=== PATIENT | female | born 1970 | race Caucasian/White ===

== ENCOUNTER 2018-02-06 06:03 | Observation (INO) | payer MEDICARE, MEDICAID ==
[~2018-02-06] VITALS: Ht 175.3 cm; Wt 78.0 kg
[~2018-02-06 06:03] MED LIST: ALPR-149 PO; ASPI-1071 PO; ATOR20TA PO; BIOT5000 PO; CHOL10002 PO; CLOP75TA15 PO; CYCL5TAB PO; FERR240T5 PO; FURO40TA4 PO; GLIP10TA11 PO; HYDR-3972 PO; IPRA3AMP IH; LISI-600 PO; MAGN400T6 PO; METO50TA7 PO; NITR0.4T SL; RISP0.253 PO; UBID100C16 PO; [UNRECOGNIZED DRUG - CODE] PO
[2018-02-06 06:33] LABS: BASOPHILS % (AUTO) 0.3 % (0-1); EOSINOPHILS # (AUTO) 0.1 X10'3 (0-0.9); EOSINOPHILS % (AUTO) 1.7 % (0-6); HEMATOCRIT 28.7 % (35.0-45.0); HEMOGLOBIN 9.6 g/dl (12.0-16.0); LYMPHOCYTES # (AUTO) 1.7 X10'3 (1.1-4.8); LYMPHOCYTES % (AUTO) 27.8 % (21-51); MEAN CORPUSCULAR HEMOGLOBIN 23.3 PG (27.0-31.0); MEAN CORPUSCULAR HGB CONC 33.4 % (33.0-36.5); MEAN CORPUSCULAR VOLUME 69.6 FL (78-98); MEAN PLATELET VOLUME 7.8 FL (7.4-10.4); MONOCYTES # (AUTO) 0.4 X10'3 (0-0.9); MONOCYTES % (AUTO) 6.9 % (2-12); NEUTROPHILS # (AUTO) 3.9 X10'3 (1.8-7.7); NEUTROPHILS % (AUTO) 63.3 % (42-75); PLATELET COUNT 294 X10'3 (140-440); RED BLOOD COUNT 4.12 X10'6 (4.20-5.60); RED CELL DISTRIBUTION WIDTH 19.1 % (11.5-14.5); WHITE BLOOD COUNT 6.2 X10'3 (4.5-11.0)
[2018-02-06 06:48] LABS: PARTIAL THROMBOPLASTIN TIME 22 SECONDS (22-32); PROTHROMBIN TIME 10.2 SECONDS (9.0-12.0)
[2018-02-06 06:53] LABS: ALANINE AMINOTRANSFERASE 25 U/L (12-78); ALBUMIN 3.3 G/DL (3.4-5.0); ALKALINE PHOSPHATASE 57 IU/L (46-116); ANION GAP 9 (8-16); ASPARTATE AMINO TRANSFERASE 18 U/L (10-37); BILIRUBIN,TOTAL 0.2 MG/DL (0.1-1.0); BLOOD UREA NITROGEN 18 MG/DL (7-18); BUN/CREATININE RATIO 14.9 (6.6-38.0); CALCIUM 8.7 MG/DL (8.5-10.1); CHLORIDE 104 MMOL/L (99-107); CREATININE 1.21 MG/DL (0.40-0.90); GLUCOSE 193 MG/DL (70-104); SODIUM 137 MMOL/L (135-145); TOTAL CARBON DIOXIDE 24.2 MMOL/L (24-32); TOTAL PROTEIN 6.7 G/DL (6.4-8.2); eGFR 47 ML/MIN
[2018-02-06] MEDS ORDERED: DULO20CA50 PO (07:02)
[2018-02-06] MEDS ORDERED: POTA8TAB8 PO (07:02)
[2018-02-06] MEDS ORDERED: FERR325T39 PO (07:02)
[2018-02-06] MEDS ORDERED: LISI40TA4 PO (07:02)
[2018-02-06] MEDS ORDERED: PRAV80TA3 PO (07:02)
[2018-02-06] MEDS ORDERED: nitroGLYCERIN 0.4mg/hour patch TD ONE (07:45)
[2018-02-06] MEDS ORDERED: carVEDilol 3.125mg tablet PO ONE (07:45)
[2018-02-06 08:01] LABS: MAGNESIUM 1.6 MG/DL (1.5-2.4)
[2018-02-06] MEDS ORDERED: hydrALAZINE 20mg/ml inj. IV ONE (10:20)
[2018-02-06] MEDS ORDERED: hydrALAZINE 20mg/ml inj. IV PRN (13:45)
[2018-02-06] MEDS ORDERED: magnesium hydroxide 30ml (MOM) UD suspension PO PRN (13:45)
[2018-02-06] MEDS ORDERED: mag hydrox/Alum hydrox/simeth 30ml oral suspension PO PRN (13:45)
[2018-02-06] MEDS ORDERED: acetaminophen 325mg tablet PO PRN (13:45)
[2018-02-06] MEDS ORDERED: ipratropium/albuterol 3ml nebule IH PRN (13:50)
[2018-02-06] MEDS: glipizide 5mg tablet PO SCH ×2 (14:10→19:47)
[2018-02-06 15:15] VITALS: BP 214/112
[2018-02-06] MEDS ORDERED: lisinopril 20mg tablet PO ONE (15:25)
[2018-02-06] MEDS: HYDROcodone/acetaminophen 10/325mg tab PO PRN (15:54)
[2018-02-06 16:25] VITALS: BP 159/87
[2018-02-06 18:10] VITALS: BP 130/74
[2018-02-06] MEDS: ondansetron/PF 4mg/2ml inj IV PRN (18:41)
[2018-02-06 18:44] VITALS: BP 118/53
[2018-02-06] MEDS: potassium chloride 8mEq ER tablet PO SCH (19:47)
[2018-02-06] MEDS: risperiDONE 0.25mg tablet PO SCH (19:49)
[2018-02-06] MEDS: heparin, porcine 5000 units/ml vial SQ SCH (19:49)
[2018-02-06] MEDS: carvedilol 6.25mg tablet PO SCH (19:52)
[2018-02-06] MEDS: lisinopril 10 MG tablet PO SCH (19:53)
[2018-02-06 19:55] VITALS: BP 94/45
[2018-02-06] MEDS ORDERED: MESSAGE TO PHARMACY PO ONE (21:20)
[2018-02-06] MEDS ORDERED: dextrose 50%-water 50ml dispensing syringe IV PRN ×2 (21:20)
[2018-02-06] MEDS ORDERED: glucagon, human recombinant 1mg kit SUBCUT PRN (21:20)
[2018-02-06] MEDS ORDERED: dextrose ORAL solution 15 GM/59 ML bottle PO PRN ×2 (21:20)
[2018-02-06 21:55] LABS: HEMOGLOBIN A1C 8.3 % (4.5-6.2)
[2018-02-06 22:00] VITALS: BP 98/56
[2018-02-06] MEDS ORDERED: insulin glargine (Lantus) pen - multi-dose SQ SCH (22:00)
[2018-02-07 02:00] VITALS: BP 105/51
[2018-02-07] MEDS: nitroGLYCERIN 0.4mg SUBLingual tab SL PRN ×4 (02:24→10:30)
[2018-02-07 02:25] VITALS: BP 111/63
[2018-02-07] MEDS: HYDROcodone/acetaminophen 10/325mg tab PO PRN (02:25)
[2018-02-07 05:55] LABS: BASOPHILS % (AUTO) 0.3 % (0-1); EOSINOPHILS # (AUTO) 0.1 X10'3 (0-0.9); HEMATOCRIT 27.5 % (35.0-45.0); HEMOGLOBIN 9.1 g/dl (12.0-16.0); LYMPHOCYTES # (AUTO) 1.6 X10'3 (1.1-4.8); LYMPHOCYTES % (AUTO) 22.8 % (21-51); MEAN CORPUSCULAR HEMOGLOBIN 23.1 PG (27.0-31.0); MEAN CORPUSCULAR VOLUME 70.1 FL (78-98); MEAN PLATELET VOLUME 8.5 FL (7.4-10.4); MONOCYTES # (AUTO) 0.4 X10'3 (0-0.9); MONOCYTES % (AUTO) 6.3 % (2-12); NEUTROPHILS # (AUTO) 4.8 X10'3 (1.8-7.7); NEUTROPHILS % (AUTO) 69.6 % (42-75); PLATELET COUNT 255 X10'3 (140-440); RED BLOOD COUNT 3.93 X10'6 (4.20-5.60); RED CELL DISTRIBUTION WIDTH 19.6 % (11.5-14.5); WHITE BLOOD COUNT 6.9 X10'3 (4.5-11.0)
[2018-02-07 06:00] VITALS: BP 131/63
[2018-02-07 06:10] LABS: ALBUMIN 3.2 G/DL (3.4-5.0); ANION GAP 9 (8-16); BLOOD UREA NITROGEN 21 MG/DL (7-18); BUN/CREATININE RATIO 18.6 (6.6-38.0); CALCIUM 8.8 MG/DL (8.5-10.1); CHLORIDE 104 MMOL/L (99-107); CREATININE 1.13 MG/DL (0.40-0.90); GLUCOSE 97 MG/DL (70-104); SODIUM 138 MMOL/L (135-145); TOTAL CARBON DIOXIDE 24.8 MMOL/L (24-32); eGFR 51 ML/MIN
[2018-02-07] MEDS: lisinopril 10 MG tablet PO SCH (07:27)
[2018-02-07] MEDS: risperiDONE 0.25mg tablet PO SCH (07:27)
[2018-02-07] MEDS: carvedilol 6.25mg tablet PO SCH (07:28)
[2018-02-07] MEDS: potassium chloride 8mEq ER tablet PO SCH (07:29)
[2018-02-07] MEDS: heparin, porcine 5000 units/ml vial SQ SCH (07:30)
[2018-02-07] MEDS ORDERED: atorvastatin 20mg tablet PO SCH (08:00)
[2018-02-07] MEDS ORDERED: ferrous sulfate 325mg tablet PO SCH (08:00)
[2018-02-07] MEDS ORDERED: duloxetine 20mg capsule.DR PO SCH (08:00)
[2018-02-07] MEDS ORDERED: clopidogrel 75mg tablet PO SCH (08:00)
[2018-02-07] MEDS ORDERED: furosemide 40mg tablet PO SCH (08:00)
[2018-02-07] MEDS ORDERED: aspirin 81mg tablet.DR PO SCH (08:00)
[2018-02-07] MEDS ORDERED: magnesium oxide 400mg tablet PO SCH (08:00)
[2018-02-07] MEDS: insulin Lispro (HumaLOG) vial - multi-dose SQ SCH ×2 (09:46→14:11)
[2018-02-07 09:50] VITALS: BP 127/77
[2018-02-07 10:00] VITALS: BP 130/56
[2018-02-07] MEDS: ondansetron/PF 4mg/2ml inj IV PRN (10:53)
[2018-02-07] MEDS ORDERED: CARV6.253 PO (12:44)
[2018-02-07] MEDS ORDERED: ISOS30TA6 PO (12:44)
[2018-02-07] MEDS ORDERED: ONDA4TAB12 PO (12:51)
== END 2018-02-07 17:40 | disposition home or self-care (01) ==
LOC: ER 06:03 → ED HOLD 13:41 → ORTHO 4S 15:40
PROVIDERS: ADMIT Family Medicine; ATTEND Family Medicine
DX: R07.89 Other chest pain (principal); E78.5 Hyperlipidemia, unspecified; E11.9 Type 2 diabetes mellitus without complications; I21.4 Non-ST elevation (NSTEMI) myocardial infarction; I11.0 Hypertensive heart disease with heart failure; I50.43 Acute on chronic combined systolic (congestive) and diastolic (congestive) heart failure; I25.110 Atherosclerotic heart disease of native coronary artery with unstable angina pectoris; Z79.82 Long term (current) use of aspirin; Z79.84 Long term (current) use of oral hypoglycemic drugs; Z79.899 Other long term (current) drug therapy; Z82.49 Family history of ischemic heart disease and other diseases of the circulatory system; Z87.891 Personal history of nicotine dependence; Z91.19 Patient's noncompliance with other medical treatment and regimen
CPT/HCPCS: 36415; 71045; 80048; 80053; 82948; 83036; 83735; 83880; 84484; 85025; 85610; 85730; 87070; 93005; 94760; 96372; 96374; 96375; 96376; 99285; G0378; J0360; J1644; J1815; J2405

== ENCOUNTER 2019-06-03 20:32 | Inpatient (IN) | payer MEDICARE, MEDICAID ==
[~2019-06-03] VITALS: Ht 175.3 cm; Wt 81.8 kg
[2019-06-03] MEDS: normal saline 1000ml 1,000 ML IV SCH (00:40)
[~2019-06-03 20:32] MED LIST changes: -ALPR-149 PO; -ATOR20TA PO; -BIOT5000 PO; +CARV6.253 PO; -CHOL10002 PO; -CYCL5TAB PO; +DULO20CA50 PO; -FERR240T5 PO; +FERR325T39 PO; -IPRA3AMP IH; +IPRA3AMP31 IH; -LISI-600 PO; +LISI40TA4 PO; -METO50TA7 PO; +ONDA4TAB12 PO; +POTA8TAB8 PO; +PRAV80TA3 PO; -UBID100C16 PO; -[UNRECOGNIZED DRUG - CODE] PO
[2019-06-03 21:00] LABS: BASOPHILS % (AUTO) 0.4 % (0-1); EOSINOPHILS % (AUTO) 0.2 % (0-6); HEMOGLOBIN 13.3 g/dl (12.0-16.0); LYMPHOCYTES # (AUTO) 1.4 X10'3 (1.1-4.8); LYMPHOCYTES % (AUTO) 12.6 % (21-51); MEAN CORPUSCULAR HEMOGLOBIN 24.1 PG (27.0-31.0); MEAN CORPUSCULAR HGB CONC 33.2 g/dL (33.0-36.5); MEAN CORPUSCULAR VOLUME 72.7 FL (78-98); MONOCYTES # (AUTO) 0.5 X10'3 (0-0.9); MONOCYTES % (AUTO) 4.5 % (2-12); NEUTROPHILS # (AUTO) 9.4 X10'3 (1.8-7.7); NEUTROPHILS % (AUTO) 82.3 % (42-75); PLATELET COUNT 325 X10'3 (140-440); RED CELL DISTRIBUTION WIDTH 15.3 % (11.5-14.5); WHITE BLOOD COUNT 11.4 X10'3 (4.5-11.0)
--- NOTE | 2019-06-03 21:07 | NUR ---
SPOKE TO MD RE: PTS COMPLAINT AND HR - AWAITING MD ORDERS
[2019-06-03] MEDS ORDERED: metoclopramide 5 mg/ml inj IV ONE (21:10)
[2019-06-03] MEDS ORDERED: morphine 4 MG/ML inj SYRINge IV ONE (21:10)
[2019-06-03] MEDS ORDERED: ondansetron/PF 4mg/2ml inj IV ONE (21:10)
[2019-06-03] MEDS ORDERED: normal saline 1000ml 1,000 ML IV ONE (21:10)
[2019-06-03 21:13] LABS: ALANINE AMINOTRANSFERASE 25 U/L (12-78); ALBUMIN 3.6 G/DL (3.4-5.0); ALBUMIN/GLOBULIN RATIO 0.9 (1.1-1.5); ALKALINE PHOSPHATASE 75 IU/L (46-116); ANION GAP 10 (8-16); ASPARTATE AMINO TRANSFERASE 13 U/L (10-37); BILIRUBIN,TOTAL 0.3 MG/DL (0.1-1.0); BLOOD UREA NITROGEN 18 MG/DL (7-18); BUN/CREATININE RATIO 13.4 (6.6-38.0); CALCIUM 8.9 MG/DL (8.5-10.1); CHLORIDE 98 MMOL/L (99-107); CREATININE 1.34 MG/DL (0.40-0.90); GLUCOSE 309 MG/DL (70-104); POTASSIUM 3.6 MMOL/L (3.5-5.1); SODIUM 132 MMOL/L (135-145); TOTAL CARBON DIOXIDE 24.3 MMOL/L (24-32); TOTAL PROTEIN 7.5 G/DL (6.4-8.2); eGFR 42 ML/MIN
[2019-06-03 21:14] LABS: PARTIAL THROMBOPLASTIN TIME 26 SECONDS (22-32)
[2019-06-03] MEDS ORDERED: aspirin 81mg tab.chew PO ONE (21:20)
[2019-06-03] MEDS ORDERED: heparin 10,000 units/1 ML INJ IV ONE (21:20)
[2019-06-03] MEDS ORDERED: diltiazem 5mg/ml 5ml inj. IV ONE ×2 (21:25→21:45)
[2019-06-03] MEDS: heparin 25,000 UNIT/250ml bag 250 ML IV SCH (21:43)
[2019-06-03] MEDS ORDERED: diltiazem-D5W 125mg/125ml 125 ML IV SCH ×2 (21:50→22:00)
[2019-06-03] MEDS ORDERED: diltiazem-NS 100mg/100ml 100 ML IV SCH ×2 (21:52→22:08)
--- NOTE | 2019-06-03 21:54 | NUR ---
PT RESPONDED THE 2ND DOSE OF CARDIZEM - MD AWARE - REPEAT EKG ORDERED.
[2019-06-03] MEDS ORDERED: magnesium 2GM in 50ml NS 50 ML IV ONE (21:55)
[2019-06-03] MEDS ORDERED: GLIP10TA11 PO (22:08)
[2019-06-03] MEDS ORDERED: MAGN500C16 PO (22:08)
[2019-06-03] MEDS ORDERED: FURO-149 PO (22:08)
[2019-06-03] MEDS ORDERED: HYDR-4353 PO (22:08)
[2019-06-03] MEDS ORDERED: CLOP75TA15 PO (22:08)
[2019-06-03] MEDS ORDERED: UBID100C45 PO (22:08)
[2019-06-03] MEDS ORDERED: CINN500C16 PO (22:08)
[2019-06-03] MEDS ORDERED: ISOS30TA6 PO (22:08)
--- NOTE | 2019-06-03 23:40 | NUR ---
HOSPITALIST AT BEDSIDE - BAUTISTA CONFIMRED TO START THE CARDIZEM DRIP AT 5MG/HR
[2019-06-03] MEDS ORDERED: ipratropium/albuterol 3ml nebule IH PRN (23:55)
[2019-06-03] MEDS ORDERED: mag hydrox/Alum hydrox/simeth 30ml oral suspension PO PRN (23:55)
[2019-06-03] MEDS ORDERED: acetaminophen 325mg tablet PO PRN (23:55)
[2019-06-03] MEDS ORDERED: ondansetron/PF 4mg/2ml inj IV PRN (23:55)
[2019-06-03] MEDS ORDERED: magnesium hydroxide 30ml (MOM) UD suspension PO PRN (23:55)
[2019-06-04] VITALS (8 sets, daily range): BP systolic 115–154; BP diastolic 54–82
[2019-06-04] MEDS ORDERED: dextrose 50%-water 50ml dispensing syringe IV PRN ×2
[2019-06-04] MEDS ORDERED: dextrose ORAL solution 15 GM/59 ML bottle PO PRN ×2
[2019-06-04] MEDS ORDERED: MESSAGE TO PHARMACY PO ONE
[2019-06-04] MEDS ORDERED: glucagon, human recombinant 1mg kit SUBCUT PRN
--- NOTE | 2019-06-04 00:09 | NUR ---
Patient in room PCU 3012. I have received report from Ankit KUMARI and had the opportunity to ask questions and assume patient care.
[2019-06-04 00:29] LABS: HEMOGLOBIN A1C 9.4 % (4.5-6.2)
--- NOTE | 2019-06-04 00:35 | NUR ---
Patient arrived to room 3012B from the ED via gurney, all belongings on person. Patient was able to ambulate to bed with minimal assistance. Oriented to room, call light, plan of care, and all questions answered. Mobile hooked up and vital signs stable. Heparin gtt running @ 1000units/hr and Cardizem gtt running at 5mls/hr. 2 RN skin check done, no findings. Chest pain "going away". Will continue to monitor.
[2019-06-04] MEDS: normal saline 1000ml 1,000 ML IV SCH (00:40)
[2019-06-04 03:06] LABS: BASOPHILS # (AUTO) 0.1 X10'3 (0-0.2); BASOPHILS % (AUTO) 0.7 % (0-1); EOSINOPHILS % (AUTO) 0.3 % (0-6); HEMATOCRIT 39.2 % (35.0-45.0); HEMOGLOBIN 12.8 g/dl (12.0-16.0); LYMPHOCYTES % (AUTO) 21.3 % (21-51); MEAN CORPUSCULAR HEMOGLOBIN 24.2 PG (27.0-31.0); MEAN CORPUSCULAR HGB CONC 32.6 g/dL (33.0-36.5); MEAN CORPUSCULAR VOLUME 74.3 FL (78-98); MONOCYTES # (AUTO) 0.5 X10'3 (0-0.9); MONOCYTES % (AUTO) 5.2 % (2-12); NEUTROPHILS # (AUTO) 6.8 X10'3 (1.8-7.7); NEUTROPHILS % (AUTO) 72.5 % (42-75); PLATELET COUNT 284 X10'3 (140-440); RED BLOOD COUNT 5.27 X10'6 (4.20-5.60); RED CELL DISTRIBUTION WIDTH 15.9 % (11.5-14.5); WHITE BLOOD COUNT 9.4 X10'3 (4.5-11.0)
[2019-06-04] MEDS: heparin 10,000 units/1 ML INJ IV PRN ×2 (05:06→12:25)
[2019-06-04] MEDS: heparin 25,000 UNIT/250ml bag 250 ML IV SCH ×4 (05:15→20:28)
[2019-06-04] MEDS: HYDROcodone/acetaminophen 5mg/325mg tablet PO PRN ×2 (05:20→23:59)
--- NOTE | 2019-06-04 06:20 | NUR ---
Patient in room PCU 3012. I have received report from Mery KUMARI and had the opportunity to ask questions and assume patient care. Pt is alert and oriented X 4 in no apparent distress, will continue to monitor.
--- NOTE | 2019-06-04 06:27 | NUR ---
Problems reprioritized. Patient report given, questions answered & plan of care reviewed with Malena KUMARI.
--- NOTE | 2019-06-04 07:17 | NUR ---
PAGER ID: [phone] MESSAGE: [id number] Mireya Juarez Pt admitted last night for A-Fib, pt in Sinus Rhythm, HR 70, BP 152/70, but pt still on Cardizem gtt at 5 mg/hr. Continue Cardizem gtt or give PO. Please adviseMalena # [phone] Addendum: 06/04/19 at 0729 by Malena Carreon RN Spoke to Dr. Sears. New order, decrease Cardizem gtt to 3 mg/hr, give Metoprolol 12.5 mg PO BID, first dose now, and discontinue Cardizem gtt, one hour aft Metoprolol given.
[2019-06-04] MEDS: metoprolol tartrate 12.5mg (1/2 tablet) PO SCH ×2 (07:52→20:33)
[2019-06-04] MEDS: aspirin 81mg tablet.DR PO SCH (07:53)
[2019-06-04] MEDS: lisinopril 20mg tablet PO SCH ×2 (07:53→20:33)
[2019-06-04] MEDS: magnesium oxide 400mg tablet PO SCH (07:53)
[2019-06-04] MEDS ORDERED: atorvastatin 20mg tablet PO SCH ×2 (08:00→21:00)
[2019-06-04] MEDS: clopidogrel 75mg tablet PO SCH (08:21)
[2019-06-04] MEDS: insulin Lispro (HumaLOG) vial - multi-dose SQ SCH ×3 (08:24→19:14)
[2019-06-04 08:50] LABS: CHOL/HDL RATIO 6.3 (0.00-4.99); CHOLESTEROL 327 MG/DL (0-200); HDL CHOLESTEROL 52 MG/DL (35-60); LDL CHOLESTEROL 214 MG/DL (50-100); TRIGLYCERIDES 345 MG/DL (20-135)
[2019-06-04] MEDS: duloxetine 20mg capsule.DR PO SCH ×2 (10:25→20:33)
--- NOTE | 2019-06-04 10:56 | NUR ---
Faxed over request for Echo and Stress Test from [facility] (Dr. Jay). Awaiting records.
[2019-06-04 13:42] LABS: URINE AMPHETAMINE SCREEN NEGATIVE (Neg); URINE BARBITUATE SCREEN NEGATIVE (Neg); URINE BENZODIAZEPINES SCREEN NEGATIVE (Neg); URINE CANNABINOID SCREEN POSITIVE (Neg); URINE COCAINE SCREEN NEGATIVE (Neg); URINE METHADONE SCREEN NEGATIVE (Neg); URINE OPIATE SCREEN POSITIVE (Neg); URINE PHENCYCLIDINE SCREEN NEGATIVE (Neg)
--- NOTE | 2019-06-04 15:44 | NUR ---
DM consult, A1c 9.4, given written DM education handout with verbal review and referral to outpatient DM education class on Saturday morning. Admitted with new onset Afib, CHF, FEMI, HTN, h/o COPD, pulmonary embolism. Noted that patient's LDL is 214 and TG is 345, recommended adding heart healthy diet, notified MD. Patient given written high triglyceride education handout with verbal review. Patient reports that she cut out soda, is using splenda, and decreased use of processed foods. Pt takes her DM medication as directed, only misses a dose every once in a while, encouraged pt to see her MD on a regular basis to have her A1c and meds evaluated. Discussed eating foods lower in saturated fats such as whole dairy and butter, patient reported that she uses a lot of coconut oil in her cooking, educated pt of the nutrition content of coconut oil and advised to use more MUFA/PUFA oils. Gave pt RD contact information for any further education. Recommend 1. continue carb controlled diet 2. consider adding heart healthy diet, notified MD 3. Wt per rx Addendum: 06/04/19 at [address] Amended: Links added.
[2019-06-04] MEDS ORDERED: nitroGLYCERIN 0.4mg SUBLingual tab SL PRN (17:25)
[2019-06-04] MEDS ORDERED: metoprolol tartrate 1mg/ml inj IV PRN (17:25)
[2019-06-04] MEDS ORDERED: regadenoson 0.4mg/5ml syringe IV ONE (17:25)
[2019-06-04] MEDS ORDERED: aminophylline 250mg/10ml inj. IV PRN (17:25)
--- NOTE | 2019-06-04 18:25 | NUR ---
Patient in room PCU 3012. I have received report from Malena KUMARI and had the opportunity to ask questions and assume patient care.
--- NOTE | 2019-06-04 18:32 | NUR ---
Problems reprioritized. Patient report given, questions answered & plan of care reviewed with Mery KUMARI.
[2019-06-04] MEDS: insulin glargine (Lantus) pen - multi-dose SQ SCH (21:30)
[2019-06-05] VITALS (17 sets, daily range): BP systolic 151–190; BP diastolic 55–91
[2019-06-05] MEDS: normal saline 1000ml 1,000 ML IV SCH (02:45)
[2019-06-05 02:55] LABS: BASOPHILS % (AUTO) 0.3 % (0-1); EOSINOPHILS # (AUTO) 0.1 X10'3 (0-0.9); HEMOGLOBIN 11.1 g/dl (12.0-16.0); LYMPHOCYTES # (AUTO) 2.4 X10'3 (1.1-4.8); LYMPHOCYTES % (AUTO) 31.2 % (21-51); MEAN CORPUSCULAR HGB CONC 32.5 g/dL (33.0-36.5); MEAN CORPUSCULAR VOLUME 73.8 FL (78-98); MEAN PLATELET VOLUME 8.1 FL (7.4-10.4); MONOCYTES # (AUTO) 0.4 X10'3 (0-0.9); MONOCYTES % (AUTO) 5.4 % (2-12); NEUTROPHILS # (AUTO) 4.8 X10'3 (1.8-7.7); NEUTROPHILS % (AUTO) 62.1 % (42-75); PLATELET COUNT 223 X10'3 (140-440); RED BLOOD COUNT 4.62 X10'6 (4.20-5.60); RED CELL DISTRIBUTION WIDTH 15.7 % (11.5-14.5); WHITE BLOOD COUNT 7.6 X10'3 (4.5-11.0)
[2019-06-05 03:11] LABS: ANION GAP 8 (8-16); BLOOD UREA NITROGEN 19 MG/DL (7-18); BUN/CREATININE RATIO 14.3 (6.6-38.0); CALCIUM 8.6 MG/DL (8.5-10.1); CHLORIDE 103 MMOL/L (99-107); CREATININE 1.33 MG/DL (0.40-0.90); GLUCOSE 154 MG/DL (70-104); POTASSIUM 3.6 MMOL/L (3.5-5.1); SODIUM 135 MMOL/L (135-145); TROPONIN I 0.34 NG/ML (0.0-0.05); eGFR 42 ML/MIN
--- NOTE | 2019-06-05 06:18 | NUR ---
Problems reprioritized. Patient report given, questions answered & plan of care reviewed with Malena KUMARI.
--- NOTE | 2019-06-05 06:22 | NUR ---
Patient in room PCU 3012. I have received report from Mery KUMRAI and had the opportunity to ask questions and assume patient care. Heparin gtt running at 1200 units/hour, pt alert and oriented X 4 in no apparent distress, will continue to monitor.
[2019-06-05] MEDS: magnesium oxide 400mg tablet PO SCH (07:38)
[2019-06-05] MEDS: metoprolol tartrate 12.5mg (1/2 tablet) PO SCH (07:39)
[2019-06-05] MEDS: duloxetine 20mg capsule.DR PO SCH ×2 (07:40→20:20)
[2019-06-05] MEDS: aspirin 81mg tablet.DR PO SCH (07:40)
[2019-06-05] MEDS: lisinopril 20mg tablet PO SCH ×2 (07:40→20:21)
[2019-06-05] MEDS: clopidogrel 75mg tablet PO SCH (07:40)
[2019-06-05] MEDS ORDERED: regadenoson 0.4mg/5ml syringe IV ONE (09:29)
[2019-06-05] MEDS ORDERED: aminophylline inj. 10 ML IV ONE (09:29)
[2019-06-05] MEDS: heparin 10,000 units/1 ML INJ IV PRN (11:26)
[2019-06-05] MEDS: heparin 25,000 UNIT/250ml bag 250 ML IV SCH ×3 (11:27→18:23)
--- NOTE | 2019-06-05 11:51 | NUR ---
PAGER ID: [phone] MESSAGE: [id number] Mireya Juarez Pt returned from [facility] Scan, pt BP is 190/91. Please call Malena #[phone]
[2019-06-05] MEDS: insulin Lispro (HumaLOG) vial - multi-dose SQ SCH ×2 (12:39→19:00)
--- NOTE | 2019-06-05 13:45 | NUR ---
Federico painter's her Primary MD is Paul. Addendum: 06/05/19 at 1346 by Fany JONES Amended: Links added.
--- NOTE | 2019-06-05 15:02 | NUR ---
PAGER ID: [phone] MESSAGE: [id number] Mireya Juarez stress test has resulted. Thank you, Malena #[phone] Addendum: 06/05/19 at 1515 by Malena Carreon RN Dr. Veras called back and stated that she spoke to Dr. Garcia. Dr. Garcia will review results of pt's stress test and come by sometime to speak with the pt to discuss a plan.
[2019-06-05] MEDS: nitroGLYCERIN 0.4mg SUBLingual tab SL PRN ×2 (17:14→17:22)
--- NOTE | 2019-06-05 17:14 | NUR ---
Pt complained of chest pain. Placed order per protocol and per Dr. Garcia for STAT ECG. Dr. Gasca read ECG strip and signed it. Per Dr. Garcia, no STEMI ALERT at this time.
[2019-06-05] MEDS ORDERED: metoprolol tartrate 50mg tablet PO ONE (17:25)
[2019-06-05] MEDS ORDERED: metoprolol tartrate 25mg tablet PO ONE (17:50)
--- NOTE | 2019-06-05 18:03 | NUR ---
PAGER ID: [phone] MESSAGE: [id number] [place]. Mireya Pt complained of chest pain while Dr. Garcia rounded, ran a STAT ECG and Radha signed and stated that there is no ST elevation, he adjusted her medications. Thank you, Malena #[phone]
--- NOTE | 2019-06-05 18:25 | NUR ---
Problems reprioritized. Patient report given, questions answered & plan of care reviewed with Dheeraj KUMARI.
[2019-06-05] MEDS ORDERED: isosorbide mononitrate 30mg tab.SR.24H PO SCH (18:30)
[2019-06-05] MEDS: HYDROcodone/acetaminophen 5mg/325mg tablet PO PRN (18:57)
[2019-06-05] MEDS: atorvastatin 20mg tablet PO SCH (20:21)
[2019-06-05] MEDS: isosorbide mononitrate 30mg tab.SR.24H PO SCH (20:22)
[2019-06-05] MEDS: insulin glargine (Lantus) pen - multi-dose SQ SCH (21:20)
[2019-06-06 03:00] VITALS: BP 156/77
--- NOTE | 2019-06-06 06:10 | NUR ---
Patient in room PCU 3012. I have received report from Dheeraj KUMARI and had the opportunity to ask questions and assume patient care. Pt is resting in no apparent distress with heparin gtt infusing at 1300 unit/hour. Will continue to monitor.
[2019-06-06 06:46] LABS: ALBUMIN 2.8 G/DL (3.4-5.0); ANION GAP 6 (8-16); BLOOD UREA NITROGEN 22 MG/DL (7-18); BUN/CREATININE RATIO 16.1 (6.6-38.0); CALCIUM 8.5 MG/DL (8.5-10.1); CHLORIDE 103 MMOL/L (99-107); CREATININE 1.37 MG/DL (0.40-0.90); GLUCOSE 166 MG/DL (70-104); POTASSIUM 4.1 MMOL/L (3.5-5.1); SODIUM 136 MMOL/L (135-145); eGFR 41 ML/MIN
[2019-06-06 07:00] VITALS: BP_SYST 146; BP_SYST 162; BP_DIAS 78; BP_DIAS 90
[2019-06-06 07:02] LABS: BASOPHILS % (AUTO) 0.4 % (0-1); EOSINOPHILS # (AUTO) 0.1 X10'3 (0-0.9); EOSINOPHILS % (AUTO) 1.2 % (0-6); HEMATOCRIT 33.3 % (35.0-45.0); LYMPHOCYTES # (AUTO) 2.2 X10'3 (1.1-4.8); LYMPHOCYTES % (AUTO) 33.8 % (21-51); MEAN CORPUSCULAR HEMOGLOBIN 24.4 PG (27.0-31.0); MEAN CORPUSCULAR HGB CONC 32.9 g/dL (33.0-36.5); MEAN CORPUSCULAR VOLUME 74.3 FL (78-98); MEAN PLATELET VOLUME 8.1 FL (7.4-10.4); MONOCYTES # (AUTO) 0.5 X10'3 (0-0.9); MONOCYTES % (AUTO) 7.2 % (2-12); NEUTROPHILS # (AUTO) 3.7 X10'3 (1.8-7.7); NEUTROPHILS % (AUTO) 57.4 % (42-75); PLATELET COUNT 252 X10'3 (140-440); RED BLOOD COUNT 4.49 X10'6 (4.20-5.60); RED CELL DISTRIBUTION WIDTH 15.6 % (11.5-14.5); WHITE BLOOD COUNT 6.5 X10'3 (4.5-11.0)
[2019-06-06] MEDS: duloxetine 20mg capsule.DR PO SCH ×2 (08:03→20:22)
[2019-06-06] MEDS: clopidogrel 75mg tablet PO SCH (08:03)
[2019-06-06] MEDS: aspirin 81mg tablet.DR PO SCH (08:03)
[2019-06-06] MEDS: insulin Lispro (HumaLOG) vial - multi-dose SQ SCH ×3 (08:59→19:11)
[2019-06-06] MEDS: lisinopril 20mg tablet PO SCH ×2 (09:33→20:23)
[2019-06-06] MEDS: metoprolol tartrate 50mg tablet PO SCH ×2 (09:33→20:22)
[2019-06-06 09:39] LABS: MAGNESIUM 1.8 MG/DL (1.5-2.4)
[2019-06-06] MEDS: magnesium oxide 400mg tablet PO SCH (09:46)
--- NOTE | 2019-06-06 10:02 | NUR ---
Pt stated that she will follow up with Dr. Jay as outpatient. I communicated this to Dr. Garcia. Pt also has denied chest pain. Per Dr. Garcia, discontinue Heparin gtt shortly after pt is evaluated by physical therapy. Pt is resting at this time in no apparent distress, will continue to monitor.
[2019-06-06 11:00] VITALS: BP 114/61
[2019-06-06 15:00] VITALS: BP 150/66
--- NOTE | 2019-06-06 15:47 | NUR ---
PAGER ID: [phone] MESSAGE: [id number] Pt's blood pressure is 186/81, heart rate 56. Please callMalena # [phone] Addendum: 06/06/19 at 1549 by Malena Carreon RN Dr. Veras called back. Per john Payne pt's blood pressure in one hour.
--- NOTE | 2019-06-06 18:29 | NUR ---
Problems reprioritized. Patient report given, questions answered & plan of care reviewed with Perri KUMARI.
[2019-06-06 19:00] VITALS: BP 189/89
[2019-06-06] MEDS: atorvastatin 20mg tablet PO SCH (20:23)
[2019-06-06] MEDS: isosorbide mononitrate 30mg tab.SR.24H PO SCH (20:23)
[2019-06-06] MEDS: apixaban 5mg tablet PO SCH (20:24)
--- NOTE | 2019-06-06 20:34 | NUR ---
PAGER ID: [phone] MESSAGE: Patient Mireya Juarez in room 3012B is experiencing pressure on chest with a manual BP of 210/102. No other symptoms reported. STAT EKG being obtained now. [facility] Perri [phone]
[2019-06-06] MEDS: nitroGLYCERIN 0.4mg SUBLingual tab SL PRN ×3 (20:42→20:53)
--- NOTE | 2019-06-06 20:45 | NUR ---
PAGER ID: [phone] MESSAGE: Patient Mireya Juarez has been given the first dose of Nitro for PRN chest pain. Reassessment of manual BP is 202/100. PCU Perri [phone]
[2019-06-06] MEDS ORDERED: nitroGLYCERIN 0.4mg/hour patch TD ONE (20:55)
[2019-06-06] MEDS: HYDROcodone/acetaminophen 5mg/325mg tablet PO PRN (21:27)
[2019-06-06] MEDS: insulin glargine (Lantus) pen - multi-dose SQ SCH (21:34)
[2019-06-06] MEDS: hydrALAZINE 20mg/ml inj. IV PRN (21:39)
--- NOTE | 2019-06-06 22:19 | NUR ---
PAGER ID: [phone] MESSAGE: Patient Mireya Juarez in room 3012B has been given the Hydralazine 10 MG and also the Nitro Patch. BP still is 191/81. Please be advised. [facility] Perri [phone]
--- NOTE | 2019-06-06 22:44 | NUR ---
PAGER ID: [phone] MESSAGE: FYI Patient Mireya Juarez in room 3012B had a manual BP taken which revealed a BP of 164/70 so advised ONE time dose of Vasotech no longer necessary. Will continue to closely monitor BP with manual cuff. U Perri [id number]
[2019-06-06 23:00] VITALS: BP 164/70
[2019-06-07 03:00] VITALS: BP 151/75
[2019-06-07 05:19] LABS: ANION GAP 8 (8-16); BLOOD UREA NITROGEN 26 MG/DL (7-18); BUN/CREATININE RATIO 22.8 (6.6-38.0); CALCIUM 8.9 MG/DL (8.5-10.1); CHLORIDE 103 MMOL/L (99-107); CREATININE 1.14 MG/DL (0.40-0.90); GLUCOSE 194 MG/DL (70-104); SODIUM 134 MMOL/L (135-145); TOTAL CARBON DIOXIDE 22.6 MMOL/L (24-32); eGFR 51 ML/MIN
[2019-06-07 05:22] LABS: BASOPHILS % (AUTO) 0.2 % (0-1); EOSINOPHILS % (AUTO) 0.6 % (0-6); HEMATOCRIT 33.8 % (35.0-45.0); LYMPHOCYTES # (AUTO) 1.2 X10'3 (1.1-4.8); LYMPHOCYTES % (AUTO) 16.2 % (21-51); MEAN CORPUSCULAR HEMOGLOBIN 24.1 PG (27.0-31.0); MEAN CORPUSCULAR HGB CONC 32.6 g/dL (33.0-36.5); MEAN PLATELET VOLUME 8.4 FL (7.4-10.4); MONOCYTES # (AUTO) 0.4 X10'3 (0-0.9); MONOCYTES % (AUTO) 5.8 % (2-12); NEUTROPHILS # (AUTO) 5.8 X10'3 (1.8-7.7); NEUTROPHILS % (AUTO) 77.2 % (42-75); PLATELET COUNT 256 X10'3 (140-440); RED BLOOD COUNT 4.56 X10'6 (4.20-5.60); RED CELL DISTRIBUTION WIDTH 15.7 % (11.5-14.5); WHITE BLOOD COUNT 7.5 X10'3 (4.5-11.0)
[2019-06-07 06:00] VITALS: BP 161/72
--- NOTE | 2019-06-07 06:30 | NUR ---
Patient in room PCU 3012. I have received report from QUOC CHEN and had the opportunity to ask questions and assume patient care.
--- NOTE | 2019-06-07 06:40 | NUR ---
Problems reprioritized. Patient report given, questions answered & plan of care reviewed with QUOC Kidd.
[2019-06-07] MEDS: metoprolol tartrate 50mg tablet PO SCH (08:00)
--- NOTE | 2019-06-07 08:20 | NUR ---
DR. TSAI NOTIFIED OF HOLDING METOPROLOL FOR HR 58.
[2019-06-07] MEDS: aspirin 81mg tablet.DR PO SCH (08:25)
[2019-06-07] MEDS: apixaban 5mg tablet PO SCH ×2 (08:26→19:08)
[2019-06-07] MEDS: isosorbide mononitrate 30mg tab.SR.24H PO SCH (08:28)
[2019-06-07] MEDS: magnesium oxide 400mg tablet PO SCH (08:29)
[2019-06-07] MEDS: clopidogrel 75mg tablet PO SCH (08:30)
[2019-06-07] MEDS: lisinopril 20mg tablet PO SCH ×2 (08:31→19:07)
[2019-06-07] MEDS: duloxetine 20mg capsule.DR PO SCH ×2 (08:31→19:06)
[2019-06-07] MEDS: insulin Lispro (HumaLOG) vial - multi-dose SQ SCH ×2 (08:56→18:57)
[2019-06-07 11:00] VITALS: BP 96/52
[2019-06-07 15:00] VITALS: BP 144/63
--- NOTE | 2019-06-07 18:00 | NUR ---
Patient in room PCU 3012. I have received report from Bernabe KUMARI and had the opportunity to ask questions and assume patient care.
--- NOTE | 2019-06-07 18:44 | NUR ---
Problems reprioritized. Patient report given, questions answered & plan of care reviewed with QUOC LOPEZ.
[2019-06-07 19:00] VITALS: BP 173/89
--- NOTE | 2019-06-07 19:00 | NUR ---
Patient in room PCU 3012. I have received report from Bernabe KUMARI and had the opportunity to ask questions and assume patient care.
--- NOTE | 2019-06-07 19:00 | NUR ---
Patient's blood pressure elevated at 173/89 but has routine Lopressor and Lisinopril ordered so giving those now and also [place] for 07/04 head and back back. Will reassess BP in about an hour and see if it is still elevated then will give the PRN Hydralazine IVP if needed.
[2019-06-07] MEDS: HYDROcodone/acetaminophen 5mg/325mg tablet PO PRN (19:06)
[2019-06-07] MEDS: metoprolol tartrate 25mg tablet PO SCH (19:07)
[2019-06-07] MEDS: hydrALAZINE 20mg/ml inj. IV PRN (20:19)
[2019-06-07] MEDS: atorvastatin 20mg tablet PO SCH (20:19)
[2019-06-07] MEDS: insulin glargine (Lantus) pen - multi-dose SQ SCH (21:00)
--- NOTE | 2019-06-07 21:29 | NUR ---
MD Olson notified about low blood sugar, lantus will be held tonight. 2100 blood sugar 58, after glucose shot blood sugar 81.
[2019-06-07 22:00] VITALS: BP 147/68
[2019-06-08] MEDS: normal saline 1000ml 1,000 ML IV SCH (00:13)
[2019-06-08 02:00] VITALS: BP 152/75
[2019-06-08 05:07] LABS: ALBUMIN 3.1 G/DL (3.4-5.0); ANION GAP 9 (8-16); BLOOD UREA NITROGEN 23 MG/DL (7-18); BUN/CREATININE RATIO 18.3 (6.6-38.0); CALCIUM 8.6 MG/DL (8.5-10.1); CHLORIDE 102 MMOL/L (99-107); CREATININE 1.26 MG/DL (0.40-0.90); GLUCOSE 172 MG/DL (70-104); POTASSIUM 3.9 MMOL/L (3.5-5.1); SODIUM 135 MMOL/L (135-145); TOTAL CARBON DIOXIDE 23.9 MMOL/L (24-32); eGFR 45 ML/MIN
[2019-06-08 05:09] LABS: BASOPHILS % (AUTO) 0.2 % (0-1); EOSINOPHILS # (AUTO) 0.1 X10'3 (0-0.9); EOSINOPHILS % (AUTO) 0.9 % (0-6); HEMATOCRIT 36.3 % (35.0-45.0); HEMOGLOBIN 11.7 g/dl (12.0-16.0); LYMPHOCYTES % (AUTO) 23.8 % (21-51); MEAN CORPUSCULAR HEMOGLOBIN 23.8 PG (27.0-31.0); MEAN CORPUSCULAR HGB CONC 32.3 g/dL (33.0-36.5); MEAN CORPUSCULAR VOLUME 73.6 FL (78-98); MEAN PLATELET VOLUME 8.1 FL (7.4-10.4); MONOCYTES # (AUTO) 0.6 X10'3 (0-0.9); MONOCYTES % (AUTO) 7.1 % (2-12); NEUTROPHILS # (AUTO) 5.7 X10'3 (1.8-7.7); PLATELET COUNT 268 X10'3 (140-440); RED BLOOD COUNT 4.94 X10'6 (4.20-5.60); RED CELL DISTRIBUTION WIDTH 15.7 % (11.5-14.5); WHITE BLOOD COUNT 8.4 X10'3 (4.5-11.0)
--- NOTE | 2019-06-08 05:19 | NUR ---
[place] documentation: I have reviewed and agree with all interventions, assessments performed and documented by Andria KUMARI. [place] Medication Administration: For this medication-pass time frame, all medication were reviewed, dispensed, administered and documented per hospital policy by Andria KUMARI.
--- NOTE | 2019-06-08 05:31 | NUR ---
Pt slept well. 2100 blood glucose was 58, administered glucose shot, after 15 min blood glucose 81. Pt dropped from Lvl 6 to Lvl 4 per hyperglycemia protocol.
[2019-06-08 06:00] VITALS: BP 137/61
--- NOTE | 2019-06-08 06:22 | NUR ---
Problems reprioritized. Patient report given, questions answered & plan of care reviewed with Bernabe RN.
--- NOTE | 2019-06-08 06:30 | NUR ---
Patient in room PCU 3012. I have received report from UQOC WEBSTER and had the opportunity to ask questions and assume patient care.
[2019-06-08] MEDS: aspirin 81mg tablet.DR PO SCH (07:50)
[2019-06-08] MEDS: duloxetine 20mg capsule.DR PO SCH (07:50)
[2019-06-08] MEDS: apixaban 5mg tablet PO SCH (07:51)
[2019-06-08] MEDS: isosorbide mononitrate 30mg tab.SR.24H PO SCH (07:51)
[2019-06-08] MEDS: magnesium oxide 400mg tablet PO SCH (07:52)
[2019-06-08] MEDS: metoprolol tartrate 25mg tablet PO SCH (07:52)
[2019-06-08] MEDS: clopidogrel 75mg tablet PO SCH (07:53)
[2019-06-08] MEDS: lisinopril 20mg tablet PO SCH (07:53)
[2019-06-08] MEDS: insulin Lispro (HumaLOG) vial - multi-dose SQ SCH ×2 (08:52→13:02)
[2019-06-08 11:00] VITALS: BP 120/71
[2019-06-08] MEDS ORDERED: METO25TA6 PO (11:26)
[2019-06-08] MEDS ORDERED: APIX5TAB3 PO (11:26)
--- NOTE | 2019-06-08 13:22 | NUR ---
AT 1150 [facility]ED [facility]. "FLORIN" STATES "THE NURSE WHO MAKES THOSE APPOINTMENTS IS OUT TO LUNCH, THEN HAS A COUPLE OF MEETINGS, THEN SHE WILL CALL YOU AND THE PT TO SCHEDULE".
== END 2019-06-08 13:40 | disposition home or self-care (01) | DRG 309 ==
LOC: ER 20:33 → PCU 3S 23:59 → CMPBEDREQ 06-04 01:51
PROVIDERS: ADMIT Internal Medicine; ATTEND Hospitalist
PROC: 4A02XM4 Measurement of Cardiac Total Activity, External Approach (ICD-10-PCS; principal; 2019-06-05)
PROC: 3E033HZ Introduction of Radioactive Substance into Peripheral Vein, Percutaneous Approach (ICD-10-PCS; 2019-06-05)
DX: I48.92 Unspecified atrial flutter (principal); N17.9 Acute kidney failure, unspecified; I24.8 Other forms of acute ischemic heart disease; I13.0 Hypertensive heart and chronic kidney disease with heart failure and stage 1 through stage 4 chronic kidney disease, or unspecified chronic kidney disease; I50.22 Chronic systolic (congestive) heart failure; I42.9 Cardiomyopathy, unspecified; I25.2 Old myocardial infarction; N18.3 Chronic kidney disease, stage 3 (moderate); I25.10 Atherosclerotic heart disease of native coronary artery without angina pectoris; E11.22 Type 2 diabetes mellitus with diabetic chronic kidney disease; E78.5 Hyperlipidemia, unspecified; F32.9 Major depressive disorder, single episode, unspecified; G35 Multiple sclerosis; G89.4 Chronic pain syndrome; I25.119 Atherosclerotic heart disease of native coronary artery with unspecified angina pectoris; J44.9 Chronic obstructive pulmonary disease, unspecified; Z79.01 Long term (current) use of anticoagulants; Z82.49 Family history of ischemic heart disease and other diseases of the circulatory system; Z86.711 Personal history of pulmonary embolism; Z87.891 Personal history of nicotine dependence; Z91.19 Patient's noncompliance with other medical treatment and regimen; Z95.5 Presence of coronary angioplasty implant and graft; Z79.899 Other long term (current) drug therapy
CPT/HCPCS: 36415; 71045; 78452; 80048; 80053; 80061; 80305; 82948; 83036; 83735; 83880; 84484; 85025; 85610; 85730; 87081; 93005; 93017; 93306; 94640; 94760; 96365; 96375; 97110; 97116; 97162; 97530; 99285; A9500; G0378; J0280; J0360; J1644; J1815; J2270; J2765; J2785; J3475; J3490; J7030

== ENCOUNTER 2024-02-05 19:30 | Inpatient (IN) | payer BC, MEDICAID ==
[~2024-02-05] VITALS: Ht 175.3 cm; Wt 82.2 kg
[~2024-02-05 19:30] MED LIST changes: +APIX5TAB3 PO; -ASPI-1071 PO; +ASPI-612 PO; -CARV6.253 PO; +CHOL10006 PO; +CINN500C16 PO; +FERR-39 PO; -FERR325T39 PO; +FURO-149 PO; -FURO40TA4 PO; -HYDR-3972 PO; +HYDR-4353 PO; +ISOS30TA84 PO; +LISI40TA13 PO; -LISI40TA4 PO; -MAGN400T6 PO; +MAGN500C4 PO; -NITR0.4T SL; +NITR0.4T51 SL; -RISP0.253 PO; +UBID100C45 PO
[2024-02-05] MEDS: normal saline 1000ML IV soln IVB ONE (20:45)
[2024-02-05] MEDS: ondansetron/PF 4mg/2ml inj IV ONE (20:45)
[2024-02-05] MEDS: morphine 4 MG/ML inj SYRINge IV ONE (20:46)
[2024-02-05 21:12] LABS: BASOPHILS # (AUTO) 0.1 X10'3 (0-0.2); BASOPHILS % (AUTO) 0.4 % (0-1); EOSINOPHILS % (AUTO) 0.3 % (0-6); HEMATOCRIT 33.9 % (35.0-45.0); HEMOGLOBIN 11.4 g/dl (12.0-16.0); LYMPHOCYTES # (AUTO) 0.8 X10'3 (1.1-4.8); LYMPHOCYTES % (AUTO) 6.8 % (21-51); MEAN CORPUSCULAR HEMOGLOBIN 24.5 PG (27.0-31.0); MEAN CORPUSCULAR HGB CONC 33.8 g/dL (33.0-36.5); MEAN CORPUSCULAR VOLUME 72.5 FL (78-98); MEAN PLATELET VOLUME 7.9 FL (7.4-10.4); MONOCYTES # (AUTO) 0.4 X10'3 (0-0.9); MONOCYTES % (AUTO) 3.4 % (2-12); NEUTROPHILS # (AUTO) 10.9 X10'3 (1.8-7.7); NEUTROPHILS % (AUTO) 89.1 % (42-75); PLATELET COUNT 299 X10'3 (140-440); RED BLOOD COUNT 4.67 X10'6 (4.20-5.60); RED CELL DISTRIBUTION WIDTH 14.8 % (11.5-14.5); WHITE BLOOD COUNT 12.3 X10'3 (4.5-11.0)
[2024-02-05 21:20] LABS: D-DIMER 3.25 MG/L FEU (0-0.50)
[2024-02-05 21:28] LABS: LACTIC SEPSIS 1.7 MMOL/L (0.4-2.0)
[2024-02-05 21:33] LABS: ALBUMIN 3.2 G/DL (3.4-5.0); ANION GAP 8 (8-16); BLOOD UREA NITROGEN 25 MG/DL (7-18); BUN/CREATININE RATIO 14.9 (10.0-20.0); CALCIUM 8.7 MG/DL (8.5-10.1); CHLORIDE 102 MMOL/L (99-107); CREATININE 1.68 MG/DL (0.40-0.90); ETHANOL < 10 MG/DL (<10); GLUCOSE 229 MG/DL (70-104); POTASSIUM 4.1 MMOL/L (3.5-5.1); SODIUM 135 MMOL/L (135-145); TOTAL CARBON DIOXIDE 25.2 MMOL/L (24-32); eCRCL 40 ML/MIN; eGFR 32 ML/MIN
[2024-02-05 21:47] LABS: AMMONIA < 10 UMOL/L (11-32)
[2024-02-05] MEDS ORDERED: iohexol 350MG/ML 100ml bottle IV ONE (22:00)
[2024-02-05] MEDS ORDERED: acetaminophen 325mg tablet PO PRN (23:25)
[2024-02-05] MEDS ORDERED: mag hydrox/Alum hydrox/simeth 30ml oral suspension PO PRN (23:25)
[2024-02-05] MEDS ORDERED: potassium Cl 20 mEq SR tablet PO PRN ×2 (23:25)
[2024-02-05] MEDS ORDERED: ondansetron/PF 4mg/2ml inj IV PRN (23:25)
[2024-02-05] MEDS ORDERED: magnesium 4gm in 100ml NS 100 ML IV PRN (23:25)
[2024-02-05] MEDS ORDERED: magnesium Cl slow-release 64mg tablet PO PRN (23:25)
[2024-02-05] MEDS ORDERED: potassium Cl 40MEQ/1/2NS 520ml 520 ML IV PRN (23:25)
[2024-02-05] MEDS: normal saline 1000ml 1,000 ML IV SCH (23:53)
[2024-02-05] MEDS: ringers solution, lacted 1,000 ML IV ONE (23:54)
[2024-02-05] MEDS: oxyCODONE/APAP 10/325mg tablet PO ONE (23:54)
[2024-02-06] VITALS (9 sets, daily range): BP systolic 111–223; BP diastolic 75–99; PULSE 86–93; RESP 10–20; TEMP 97.1–97.7; O2SAT 92–96
[2024-02-06] MEDS: morphine 4 MG/ML inj SYRINge IV PRN (04:05)
[2024-02-06] MEDS: ringers solution, lacted 1,000 ML IV ONE (04:19)
[2024-02-06 05:06] LABS: BASOPHILS % (AUTO) 0.1 % (0-1); EOSINOPHILS % (AUTO) 0.1 % (0-6); HEMATOCRIT 29.2 % (35.0-45.0); HEMOGLOBIN 9.7 g/dl (12.0-16.0); LYMPHOCYTES # (AUTO) 1.3 X10'3 (1.1-4.8); LYMPHOCYTES % (AUTO) 13.7 % (21-51); MEAN CORPUSCULAR HEMOGLOBIN 24.5 PG (27.0-31.0); MEAN CORPUSCULAR HGB CONC 33.2 g/dL (33.0-36.5); MEAN CORPUSCULAR VOLUME 73.9 FL (78-98); MEAN PLATELET VOLUME 7.8 FL (7.4-10.4); MONOCYTES # (AUTO) 0.6 X10'3 (0-0.9); MONOCYTES % (AUTO) 6.4 % (2-12); NEUTROPHILS # (AUTO) 7.4 X10'3 (1.8-7.7); NEUTROPHILS % (AUTO) 79.7 % (42-75); PLATELET COUNT 256 X10'3 (140-440); RED BLOOD COUNT 3.96 X10'6 (4.20-5.60); WHITE BLOOD COUNT 9.2 X10'3 (4.5-11.0)
[2024-02-06 05:33] LABS: ALBUMIN 2.7 G/DL (3.4-5.0); ANION GAP 13 (8-16); BLOOD UREA NITROGEN 25 MG/DL (7-18); BUN/CREATININE RATIO 17.2 (10.0-20.0); CALCIUM 8.3 MG/DL (8.5-10.1); CHLORIDE 105 MMOL/L (99-107); CREATININE 1.45 MG/DL (0.40-0.90); GLUCOSE 151 MG/DL (70-104); POTASSIUM 4.2 MMOL/L (3.5-5.1); SODIUM 138 MMOL/L (135-145); TOTAL CARBON DIOXIDE 20.4 MMOL/L (24-32); eCRCL 46 ML/MIN; eGFR 38 ML/MIN
[2024-02-06 05:43] LABS: HEMOGLOBIN A1C 7.6 % (4.5-6.2)
[2024-02-06] MEDS: docusate sod 100mg capsule PO SCH (08:00)
[2024-02-06] MEDS: enoxaparin 40mg/0.4ml syringe SUBCUT SCH (08:17)
[2024-02-06] MEDS ORDERED: dextrose 50%-water 50ml dispensing syringe IV PRN (12:25)
[2024-02-06] MEDS ORDERED: DEXTROSE 15 GM of carb/4 tabs (each vial/BOTTLE has 4 tablets) PO PRN (12:25)
[2024-02-06] MEDS: MESSAGE TO PHARMACY PO ONE (12:25)
[2024-02-06] MEDS ORDERED: glucagon, human recombinant 1mg kit SUBCUT PRN (12:25)
[2024-02-06] MEDS ORDERED: GADOTERATE MEGLUMINE 7.5 MMOL/15 ML VIAL IV ONE (20:11)
[2024-02-06] MEDS: insulin glargine (Lantus) pen - multi-dose SQ SCH (21:00)
[2024-02-06] MEDS: oxyCODONE/APAP 10/325mg tablet PO ONE (23:10)
[2024-02-07] VITALS (8 sets, daily range): BP systolic 125–198; BP diastolic 62–88; PULSE 76–99; RESP 13–21; TEMP 96.7–98; O2SAT 90–94
[2024-02-07] MEDS: lisinopril 20mg tablet PO SCH (01:33)
[2024-02-07] MEDS: HYDROchlorothiazide 12.5mg capsule PO SCH (01:41)
[2024-02-07] MEDS: LIDOcaine 5% patch TP ONE (02:15)
[2024-02-07] MEDS: HYDROcodone/acetaminophen 10/325mg tab PO PRN ×2 (02:25→10:27)
[2024-02-07] MEDS: HYDROmorphone inj. 0.5 MG/0.5 ML DISP.SYRIN IV ONE (03:17)
[2024-02-07 07:38] LABS: BASOPHILS % (AUTO) 0.4 % (0-1); EOSINOPHILS # (AUTO) 0.1 X10'3 (0-0.9); EOSINOPHILS % (AUTO) 1.3 % (0-6); HEMATOCRIT 28.6 % (35.0-45.0); HEMOGLOBIN 9.4 g/dl (12.0-16.0); LYMPHOCYTES # (AUTO) 1.6 X10'3 (1.1-4.8); LYMPHOCYTES % (AUTO) 20.4 % (21-51); MEAN CORPUSCULAR HEMOGLOBIN 24.5 PG (27.0-31.0); MEAN CORPUSCULAR HGB CONC 32.9 g/dL (33.0-36.5); MEAN CORPUSCULAR VOLUME 74.3 FL (78-98); MEAN PLATELET VOLUME 8.3 FL (7.4-10.4); MONOCYTES # (AUTO) 0.9 X10'3 (0-0.9); MONOCYTES % (AUTO) 11.2 % (2-12); NEUTROPHILS # (AUTO) 5.4 X10'3 (1.8-7.7); NEUTROPHILS % (AUTO) 66.7 % (42-75); PLATELET COUNT 250 X10'3 (140-440); RED BLOOD COUNT 3.85 X10'6 (4.20-5.60); RED CELL DISTRIBUTION WIDTH 14.9 % (11.5-14.5); WHITE BLOOD COUNT 8.1 X10'3 (4.5-11.0)
[2024-02-07] MEDS: insulin Lispro (HumaLOG) vial - multi-dose SQ SCH (07:52)
[2024-02-07 07:55] LABS: ALBUMIN 2.7 G/DL (3.4-5.0); ANION GAP 10 (8-16); BLOOD UREA NITROGEN 17 MG/DL (7-18); BUN/CREATININE RATIO 12.5 (10.0-20.0); CALCIUM 8.9 MG/DL (8.5-10.1); CHLORIDE 104 MMOL/L (99-107); CREATININE 1.36 MG/DL (0.40-0.90); GLUCOSE 192 MG/DL (70-104); SODIUM 138 MMOL/L (135-145); TOTAL CARBON DIOXIDE 23.9 MMOL/L (24-32); eCRCL 49 ML/MIN; eGFR 41 ML/MIN
[2024-02-07] MEDS ORDERED: lisinopril 20mg tablet PO SCH (08:00)
[2024-02-07] MEDS ORDERED: non-formulary drug (Ubidecarenone (Co Q-10) 100 MG) PO SCH (08:00)
[2024-02-07] MEDS: ferrous sulfate 325mg tablet PO SCH (08:06)
[2024-02-07] MEDS: aspirin 81mg, enteric-coated 1 TAB TABLET.DR PO SCH (08:06)
[2024-02-07] MEDS: duloxetine 20mg capsule.DR PO SCH (08:08)
[2024-02-07] MEDS: cholecalciferol (vitamin D3) 1,000 unit (25mcg) tablet PO SCH (08:08)
[2024-02-07] MEDS: LIDOcaine 5% patch TP SCH (08:09)
[2024-02-07 11:18] LABS: ALANINE AMINOTRANSFERASE 15 U/L (12-78); ALBUMIN/GLOBULIN RATIO 0.8 (1.1-1.5); ALKALINE PHOSPHATASE 65 IU/L (46-116); ASPARTATE AMINO TRANSFERASE 12 U/L (10-37); BILIRUBIN,DIRECT 0.1 MG/DL (0-0.3); BILIRUBIN,TOTAL 0.4 MG/DL (0.1-1.0); TOTAL PROTEIN 6.2 G/DL (6.4-8.2)
[2024-02-07] MEDS ORDERED: furosemide 40mg tablet PO PRN (15:15)
[2024-02-08] VITALS (8 sets, daily range): BP systolic 116–147; BP diastolic 58–78; PULSE 74–84; RESP 10–17; TEMP 96.7–97.9; O2SAT 91–95
[2024-02-08 06:26] LABS: BASOPHILS % (AUTO) 0.6 % (0-1); EOSINOPHILS # (AUTO) 0.2 X10'3 (0-0.9); EOSINOPHILS % (AUTO) 2.8 % (0-6); HEMATOCRIT 27.5 % (35.0-45.0); HEMOGLOBIN 9.1 g/dl (12.0-16.0); LYMPHOCYTES # (AUTO) 1.8 X10'3 (1.1-4.8); LYMPHOCYTES % (AUTO) 27.1 % (21-51); MEAN CORPUSCULAR HEMOGLOBIN 24.3 PG (27.0-31.0); MEAN CORPUSCULAR HGB CONC 33.1 g/dL (33.0-36.5); MEAN CORPUSCULAR VOLUME 73.6 FL (78-98); MEAN PLATELET VOLUME 8.2 FL (7.4-10.4); MONOCYTES # (AUTO) 0.5 X10'3 (0-0.9); MONOCYTES % (AUTO) 7.2 % (2-12); NEUTROPHILS # (AUTO) 4.1 X10'3 (1.8-7.7); NEUTROPHILS % (AUTO) 62.3 % (42-75); PLATELET COUNT 265 X10'3 (140-440); RED BLOOD COUNT 3.74 X10'6 (4.20-5.60); RED CELL DISTRIBUTION WIDTH 14.7 % (11.5-14.5); WHITE BLOOD COUNT 6.6 X10'3 (4.5-11.0)
[2024-02-08 07:19] LABS: ALANINE AMINOTRANSFERASE 15 U/L (12-78); ALBUMIN 2.5 G/DL (3.4-5.0); ALBUMIN/GLOBULIN RATIO 0.8 (1.1-1.5); ALKALINE PHOSPHATASE 57 IU/L (46-116); ANION GAP 8 (8-16); ASPARTATE AMINO TRANSFERASE 13 U/L (10-37); BILIRUBIN,TOTAL 0.3 MG/DL (0.1-1.0); BLOOD UREA NITROGEN 21 MG/DL (7-18); BUN/CREATININE RATIO 13.5 (10.0-20.0); CALCIUM 8.8 MG/DL (8.5-10.1); CHLORIDE 103 MMOL/L (99-107); CREATININE 1.55 MG/DL (0.40-0.90); GLUCOSE 171 MG/DL (70-104); POTASSIUM 3.9 MMOL/L (3.5-5.1); SODIUM 138 MMOL/L (135-145); TOTAL CARBON DIOXIDE 27.2 MMOL/L (24-32); TOTAL PROTEIN 5.8 G/DL (6.4-8.2); eCRCL 43 ML/MIN; eGFR 35 ML/MIN
[2024-02-08 07:30] LABS: CHOL/HDL RATIO 3.5 (0.00-4.99); CHOLESTEROL 204 MG/DL (0-200); HDL CHOLESTEROL 59 MG/DL (35-60); LDL CHOLESTEROL 108 MG/DL (50-100); PRO BRAIN NATRIURETIC PEPTIDE 652 PG/ML (0-125); TRIGLYCERIDES 102 MG/DL (20-135)
[2024-02-08] MEDS: atorvastatin 20mg tablet PO SCH (08:11)
[2024-02-08] MEDS: HYDROchlorothiazide 25mg tablet PO SCH (08:13)
[2024-02-08] MEDS: magnesium hydroxide 30ml (MOM) UD suspension PO PRN (11:38)
[2024-02-08] MEDS: normal saline 1000ml 1,000 ML IV SCH (13:31)
[2024-02-08] MEDS: dextrose 50%-water 50ml dispensing syringe IV PRN (16:52)
[2024-02-09] VITALS (9 sets, daily range): BP systolic 116–140; BP diastolic 62–73; PULSE 74–83; RESP 12–21; TEMP 97–98.6; O2SAT 91–96
[2024-02-09 07:05] LABS: BASOPHILS % (AUTO) 0.4 % (0-1); EOSINOPHILS # (AUTO) 0.2 X10'3 (0-0.9); EOSINOPHILS % (AUTO) 2.8 % (0-6); HEMATOCRIT 25.9 % (35.0-45.0); HEMOGLOBIN 8.5 g/dl (12.0-16.0); LYMPHOCYTES # (AUTO) 1.7 X10'3 (1.1-4.8); LYMPHOCYTES % (AUTO) 25.1 % (21-51); MEAN CORPUSCULAR HEMOGLOBIN 24.2 PG (27.0-31.0); MEAN CORPUSCULAR HGB CONC 32.8 g/dL (33.0-36.5); MEAN CORPUSCULAR VOLUME 73.7 FL (78-98); MEAN PLATELET VOLUME 7.8 FL (7.4-10.4); MONOCYTES # (AUTO) 0.5 X10'3 (0-0.9); MONOCYTES % (AUTO) 7.3 % (2-12); NEUTROPHILS # (AUTO) 4.5 X10'3 (1.8-7.7); NEUTROPHILS % (AUTO) 64.4 % (42-75); PLATELET COUNT 251 X10'3 (140-440); RED BLOOD COUNT 3.52 X10'6 (4.20-5.60); RED CELL DISTRIBUTION WIDTH 14.8 % (11.5-14.5); WHITE BLOOD COUNT 6.9 X10'3 (4.5-11.0)
[2024-02-09 07:25] LABS: ALANINE AMINOTRANSFERASE 17 U/L (12-78); ALBUMIN 2.3 G/DL (3.4-5.0); ALBUMIN/GLOBULIN RATIO 0.7 (1.1-1.5); ALKALINE PHOSPHATASE 53 IU/L (46-116); ANION GAP 7 (8-16); ASPARTATE AMINO TRANSFERASE 14 U/L (10-37); BILIRUBIN,TOTAL 0.3 MG/DL (0.1-1.0); BLOOD UREA NITROGEN 27 MG/DL (7-18); BUN/CREATININE RATIO 16.6 (10.0-20.0); CALCIUM 8.6 MG/DL (8.5-10.1); CHLORIDE 104 MMOL/L (99-107); CREATININE 1.63 MG/DL (0.40-0.90); GLUCOSE 154 MG/DL (70-104); POTASSIUM 4.2 MMOL/L (3.5-5.1); SODIUM 138 MMOL/L (135-145); TOTAL CARBON DIOXIDE 27.3 MMOL/L (24-32); TOTAL PROTEIN 5.8 G/DL (6.4-8.2); eCRCL 41 ML/MIN; eGFR 33 ML/MIN
[2024-02-09] MEDS: LIDOcaine 5% patch TP SCH (08:28)
[2024-02-10] VITALS (8 sets, daily range): BP systolic 141–179; BP diastolic 63–83; PULSE 76–81; RESP 14–22; TEMP 96.8–99.4; O2SAT 91–96
[2024-02-10 06:30] LABS: BASOPHILS % (AUTO) 0.4 % (0-1); EOSINOPHILS # (AUTO) 0.3 X10'3 (0-0.9); EOSINOPHILS % (AUTO) 3.6 % (0-6); HEMATOCRIT 26.3 % (35.0-45.0); HEMOGLOBIN 8.7 g/dl (12.0-16.0); LYMPHOCYTES # (AUTO) 1.4 X10'3 (1.1-4.8); LYMPHOCYTES % (AUTO) 17.8 % (21-51); MEAN CORPUSCULAR HEMOGLOBIN 24.4 PG (27.0-31.0); MEAN CORPUSCULAR VOLUME 73.9 FL (78-98); MEAN PLATELET VOLUME 7.7 FL (7.4-10.4); MONOCYTES # (AUTO) 0.6 X10'3 (0-0.9); MONOCYTES % (AUTO) 7.3 % (2-12); NEUTROPHILS # (AUTO) 5.6 X10'3 (1.8-7.7); NEUTROPHILS % (AUTO) 70.9 % (42-75); PLATELET COUNT 288 X10'3 (140-440); RED BLOOD COUNT 3.56 X10'6 (4.20-5.60); RED CELL DISTRIBUTION WIDTH 14.7 % (11.5-14.5); WHITE BLOOD COUNT 7.8 X10'3 (4.5-11.0)
[2024-02-10 06:43] LABS: ALANINE AMINOTRANSFERASE 17 U/L (12-78); ALBUMIN 2.4 G/DL (3.4-5.0); ALBUMIN/GLOBULIN RATIO 0.6 (1.1-1.5); ALKALINE PHOSPHATASE 58 IU/L (46-116); ANION GAP 8 (8-16); ASPARTATE AMINO TRANSFERASE 14 U/L (10-37); BILIRUBIN,TOTAL 0.5 MG/DL (0.1-1.0); BLOOD UREA NITROGEN 25 MG/DL (7-18); BUN/CREATININE RATIO 16.2 (10.0-20.0); CALCIUM 9.1 MG/DL (8.5-10.1); CHLORIDE 103 MMOL/L (99-107); CREATININE 1.54 MG/DL (0.40-0.90); GLUCOSE 101 MG/DL (70-104); POTASSIUM 4.1 MMOL/L (3.5-5.1); SODIUM 141 MMOL/L (135-145); TOTAL CARBON DIOXIDE 30.4 MMOL/L (24-32); TOTAL PROTEIN 6.2 G/DL (6.4-8.2); eCRCL 44 ML/MIN; eGFR 35 ML/MIN
[2024-02-10] MEDS ORDERED: magnesium hydroxide 30ml (MOM) UD suspension PO PRN (10:30)
[2024-02-10] MEDS: oxyCODONE/APAP 10/325mg tablet PO PRN (11:15)
[2024-02-10] MEDS: DEXTROSE 15 GM of carb/4 tabs (each vial/BOTTLE has 4 tablets) PO PRN (16:08)
[2024-02-11] VITALS (9 sets, daily range): BP systolic 122–208; BP diastolic 63–79; PULSE 70–97; RESP 14–18; TEMP 97.3–99.2; O2SAT 90–97
[2024-02-11] MEDS: hydrALAZINE 20mg/ml inj. IV PRN (00:46)
[2024-02-11] MEDS: temazepam 15mg capsule PO PRN (00:55)
[2024-02-11] MEDS: hydrALAZINE 20mg/ml inj. IV ONE (01:38)
[2024-02-11] MEDS: oxyCODONE/APAP 10/325mg tablet PO PRN ×2 (09:17→14:20)
[2024-02-11] MEDS: bisacodyl 10mg suppository rectal RC PRN (10:16)
[2024-02-11] MEDS: magnesium hydroxide 30ml (MOM) UD suspension PO SCH (10:20)
[2024-02-11 12:01] LABS: BASOPHILS % (AUTO) 0.5 % (0-1); EOSINOPHILS # (AUTO) 0.2 X10'3 (0-0.9); HEMATOCRIT 28.2 % (35.0-45.0); HEMOGLOBIN 9.3 g/dl (12.0-16.0); LYMPHOCYTES # (AUTO) 1.4 X10'3 (1.1-4.8); LYMPHOCYTES % (AUTO) 18.5 % (21-51); MEAN CORPUSCULAR HEMOGLOBIN 24.2 PG (27.0-31.0); MEAN CORPUSCULAR VOLUME 73.4 FL (78-98); MEAN PLATELET VOLUME 7.6 FL (7.4-10.4); MONOCYTES # (AUTO) 0.5 X10'3 (0-0.9); MONOCYTES % (AUTO) 6.6 % (2-12); NEUTROPHILS # (AUTO) 5.2 X10'3 (1.8-7.7); NEUTROPHILS % (AUTO) 71.4 % (42-75); PLATELET COUNT 330 X10'3 (140-440); RED BLOOD COUNT 3.84 X10'6 (4.20-5.60); RED CELL DISTRIBUTION WIDTH 15.1 % (11.5-14.5); WHITE BLOOD COUNT 7.3 X10'3 (4.5-11.0)
[2024-02-11 12:10] LABS: ALANINE AMINOTRANSFERASE 15 U/L (12-78); ALBUMIN 2.5 G/DL (3.4-5.0); ALBUMIN/GLOBULIN RATIO 0.6 (1.1-1.5); ALKALINE PHOSPHATASE 60 IU/L (46-116); ANION GAP 11 (8-16); ASPARTATE AMINO TRANSFERASE 15 U/L (10-37); BILIRUBIN,TOTAL 0.6 MG/DL (0.1-1.0); BLOOD UREA NITROGEN 26 MG/DL (7-18); BUN/CREATININE RATIO 17.2 (10.0-20.0); CALCIUM 9.2 MG/DL (8.5-10.1); CHLORIDE 100 MMOL/L (99-107); CREATININE 1.51 MG/DL (0.40-0.90); GLUCOSE 152 MG/DL (70-104); POTASSIUM 4.1 MMOL/L (3.5-5.1); SODIUM 139 MMOL/L (135-145); TOTAL CARBON DIOXIDE 27.6 MMOL/L (24-32); TOTAL PROTEIN 6.5 G/DL (6.4-8.2); eCRCL 45 ML/MIN; eGFR 36 ML/MIN
[2024-02-11] MEDS ORDERED: metoprolol tartrate 1mg/ml inj IV PRN (20:25)
[2024-02-11] MEDS ORDERED: nitroGLYCERIN 0.4mg SUBLingual tab SL PRN (20:25)
[2024-02-12] VITALS (33 sets, daily range): BP systolic 102–144; BP diastolic 51–77; PULSE 68–100; RESP 9–20; TEMP 97.3–97.8; O2SAT 90–100
[2024-02-12 06:46] LABS: BASOPHILS % (AUTO) 0.6 % (0-1); EOSINOPHILS # (AUTO) 0.2 X10'3 (0-0.9); EOSINOPHILS % (AUTO) 3.9 % (0-6); HEMATOCRIT 27.2 % (35.0-45.0); LYMPHOCYTES # (AUTO) 1.4 X10'3 (1.1-4.8); LYMPHOCYTES % (AUTO) 26.4 % (21-51); MEAN CORPUSCULAR HEMOGLOBIN 24.4 PG (27.0-31.0); MEAN CORPUSCULAR HGB CONC 32.9 g/dL (33.0-36.5); MEAN PLATELET VOLUME 7.4 FL (7.4-10.4); MONOCYTES # (AUTO) 0.5 X10'3 (0-0.9); MONOCYTES % (AUTO) 8.3 % (2-12); NEUTROPHILS # (AUTO) 3.3 X10'3 (1.8-7.7); NEUTROPHILS % (AUTO) 60.8 % (42-75); PLATELET COUNT 332 X10'3 (140-440); RED BLOOD COUNT 3.67 X10'6 (4.20-5.60); RED CELL DISTRIBUTION WIDTH 15.1 % (11.5-14.5); WHITE BLOOD COUNT 5.4 X10'3 (4.5-11.0)
[2024-02-12 07:04] LABS: ALANINE AMINOTRANSFERASE 20 U/L (12-78); ALBUMIN 2.7 G/DL (3.4-5.0); ALBUMIN/GLOBULIN RATIO 0.7 (1.1-1.5); ALKALINE PHOSPHATASE 71 IU/L (46-116); ANION GAP 6 (8-16); ASPARTATE AMINO TRANSFERASE 20 U/L (10-37); BILIRUBIN,TOTAL 0.6 MG/DL (0.1-1.0); BLOOD UREA NITROGEN 30 MG/DL (7-18); BUN/CREATININE RATIO 18.1 (10.0-20.0); CALCIUM 9.2 MG/DL (8.5-10.1); CHLORIDE 100 MMOL/L (99-107); CREATININE 1.66 MG/DL (0.40-0.90); GLUCOSE 158 MG/DL (70-104); POTASSIUM 3.8 MMOL/L (3.5-5.1); SODIUM 138 MMOL/L (135-145); TOTAL CARBON DIOXIDE 31.8 MMOL/L (24-32); TOTAL PROTEIN 6.6 G/DL (6.4-8.2); eCRCL 40 ML/MIN; eGFR 32 ML/MIN
[2024-02-12] MEDS ORDERED: iohexol 350MG/ML 100ml bottle IV ONE ×4 (12:06→17:56)
[2024-02-12] MEDS: NUT.TX.GLUC.INTOLER,LAC-FR,SOY (GLUCERNA) 237 ML PO SCH (12:30)
[2024-02-12] MEDS: regadenoson 0.4mg/5ml syringe IV PRN (12:39)
[2024-02-12] MEDS: aminophylline 250mg/10ml inj. IV PRN (12:52)
[2024-02-12] MEDS ORDERED: LIDOcaine 1% 30ml preserv. free vial ONE (16:31)
[2024-02-12] MEDS ORDERED: diphenhydrAMINE 50 mg/ml inj ONE (16:31)
[2024-02-12] MEDS ORDERED: heparin 1,000unit/ml 10ml vial 10 ML ONE (16:31)
[2024-02-12] MEDS ORDERED: iohexol 350 MG/ML 50ML vial IV ONE (16:31)
[2024-02-12] MEDS ORDERED: fentaNYL/PF 50MCG/1 ML 2ML syringe ONE ×2 (16:31→18:06)
[2024-02-12] MEDS ORDERED: midazolam 1 mg/ML 2ml injection ONE (16:31)
[2024-02-12] MEDS ORDERED: verapamil 2.5 mg/ml inj IV ONE (17:13)
[2024-02-12] MEDS ORDERED: nitroGLYCERIN 500mcg/5mL D5W 5 ML IV ONE (17:14)
[2024-02-12] MEDS ORDERED: HYDROcodone/acetaminophen 5mg/325mg tablet PO PRN (19:05)
[2024-02-12] MEDS ORDERED: proCHLORperazine 10 MG/2 ml inj IV PRN (19:05)
[2024-02-12] MEDS ORDERED: HYDROcodone/acetaminophen 10/325mg tab PO PRN (19:05)
[2024-02-12] MEDS: normal saline 1000ml 1,000 ML IV SCH (20:00)
[2024-02-13] VITALS (8 sets, daily range): BP systolic 80–136; BP diastolic 41–75; PULSE 75–84; RESP 12–18; TEMP 96.9–98; O2SAT 88–97
[2024-02-13 08:08] LABS: BASOPHILS % (AUTO) 0.6 % (0-1); EOSINOPHILS # (AUTO) 0.2 X10'3 (0-0.9); EOSINOPHILS % (AUTO) 3.8 % (0-6); HEMATOCRIT 26.7 % (35.0-45.0); HEMOGLOBIN 8.7 g/dl (12.0-16.0); LYMPHOCYTES # (AUTO) 1.3 X10'3 (1.1-4.8); LYMPHOCYTES % (AUTO) 23.1 % (21-51); MEAN CORPUSCULAR HEMOGLOBIN 24.4 PG (27.0-31.0); MEAN CORPUSCULAR HGB CONC 32.7 g/dL (33.0-36.5); MEAN CORPUSCULAR VOLUME 74.6 FL (78-98); MEAN PLATELET VOLUME 7.6 FL (7.4-10.4); MONOCYTES # (AUTO) 0.5 X10'3 (0-0.9); MONOCYTES % (AUTO) 9.8 % (2-12); NEUTROPHILS # (AUTO) 3.4 X10'3 (1.8-7.7); NEUTROPHILS % (AUTO) 62.7 % (42-75); PLATELET COUNT 341 X10'3 (140-440); RED BLOOD COUNT 3.58 X10'6 (4.20-5.60); RED CELL DISTRIBUTION WIDTH 15.2 % (11.5-14.5); WHITE BLOOD COUNT 5.5 X10'3 (4.5-11.0)
[2024-02-13 08:30] LABS: ALANINE AMINOTRANSFERASE 29 U/L (12-78); ALBUMIN 2.7 G/DL (3.4-5.0); ALBUMIN/GLOBULIN RATIO 0.7 (1.1-1.5); ALKALINE PHOSPHATASE 77 IU/L (46-116); ANION GAP 6 (8-16); ASPARTATE AMINO TRANSFERASE 30 U/L (10-37); BILIRUBIN,TOTAL 0.6 MG/DL (0.1-1.0); BLOOD UREA NITROGEN 32 MG/DL (7-18); BUN/CREATININE RATIO 18.1 (10.0-20.0); CALCIUM 8.9 MG/DL (8.5-10.1); CHLORIDE 102 MMOL/L (99-107); CREATININE 1.77 MG/DL (0.40-0.90); GLUCOSE 133 MG/DL (70-104); POTASSIUM 4.2 MMOL/L (3.5-5.1); SODIUM 139 MMOL/L (135-145); TOTAL PROTEIN 6.6 G/DL (6.4-8.2); eCRCL 38 ML/MIN; eGFR 30 ML/MIN
[2024-02-13] MEDS: normal saline 1000ml 1,000 ML IV SCH (15:05)
[2024-02-14] VITALS (7 sets, daily range): BP systolic 89–150; BP diastolic 43–68; PULSE 64–75; RESP 12–21; TEMP 96.8–97.9; O2SAT 90–96
[2024-02-14 06:28] LABS: BASOPHILS % (AUTO) 0.7 % (0-1); EOSINOPHILS # (AUTO) 0.3 X10'3 (0-0.9); EOSINOPHILS % (AUTO) 4.9 % (0-6); HEMATOCRIT 24.9 % (35.0-45.0); HEMOGLOBIN 8.2 g/dl (12.0-16.0); LYMPHOCYTES # (AUTO) 1.5 X10'3 (1.1-4.8); LYMPHOCYTES % (AUTO) 27.4 % (21-51); MEAN CORPUSCULAR HEMOGLOBIN 24.3 PG (27.0-31.0); MEAN CORPUSCULAR VOLUME 73.6 FL (78-98); MEAN PLATELET VOLUME 7.4 FL (7.4-10.4); MONOCYTES # (AUTO) 0.5 X10'3 (0-0.9); MONOCYTES % (AUTO) 9.3 % (2-12); NEUTROPHILS # (AUTO) 3.1 X10'3 (1.8-7.7); NEUTROPHILS % (AUTO) 57.7 % (42-75); PLATELET COUNT 343 X10'3 (140-440); RED BLOOD COUNT 3.39 X10'6 (4.20-5.60); WHITE BLOOD COUNT 5.3 X10'3 (4.5-11.0)
[2024-02-14 06:44] LABS: ALANINE AMINOTRANSFERASE 29 U/L (12-78); ALBUMIN 2.5 G/DL (3.4-5.0); ALBUMIN/GLOBULIN RATIO 0.7 (1.1-1.5); ALKALINE PHOSPHATASE 74 IU/L (46-116); ANION GAP 8 (8-16); ASPARTATE AMINO TRANSFERASE 26 U/L (10-37); BILIRUBIN,TOTAL 0.5 MG/DL (0.1-1.0); BLOOD UREA NITROGEN 40 MG/DL (7-18); BUN/CREATININE RATIO 17.2 (10.0-20.0); CALCIUM 8.7 MG/DL (8.5-10.1); CHLORIDE 100 MMOL/L (99-107); CREATININE 2.32 MG/DL (0.40-0.90); GLUCOSE 181 MG/DL (70-104); POTASSIUM 4.3 MMOL/L (3.5-5.1); SODIUM 136 MMOL/L (135-145); TOTAL CARBON DIOXIDE 27.6 MMOL/L (24-32); TOTAL PROTEIN 6.3 G/DL (6.4-8.2); eCRCL 29 ML/MIN; eGFR 22 ML/MIN
[2024-02-14] MEDS ORDERED: methylnaltrexone br 12mg/0.6ml inj***SubQ only SQ PRN (10:35)
[2024-02-15] VITALS (7 sets, daily range): BP systolic 113–163; BP diastolic 49–74; PULSE 69–89; RESP 10–18; TEMP 97–98; O2SAT 90–98
[2024-02-15 07:23] LABS: BASOPHILS % (AUTO) 0.5 % (0-1); EOSINOPHILS # (AUTO) 0.2 X10'3 (0-0.9); EOSINOPHILS % (AUTO) 4.1 % (0-6); HEMATOCRIT 25.2 % (35.0-45.0); HEMOGLOBIN 8.3 g/dl (12.0-16.0); LYMPHOCYTES # (AUTO) 1.2 X10'3 (1.1-4.8); LYMPHOCYTES % (AUTO) 22.8 % (21-51); MEAN CORPUSCULAR HEMOGLOBIN 24.3 PG (27.0-31.0); MEAN CORPUSCULAR HGB CONC 32.8 g/dL (33.0-36.5); MEAN CORPUSCULAR VOLUME 74.1 FL (78-98); MEAN PLATELET VOLUME 7.1 FL (7.4-10.4); MONOCYTES # (AUTO) 0.4 X10'3 (0-0.9); MONOCYTES % (AUTO) 8.1 % (2-12); NEUTROPHILS # (AUTO) 3.5 X10'3 (1.8-7.7); NEUTROPHILS % (AUTO) 64.5 % (42-75); PLATELET COUNT 347 X10'3 (140-440); RED BLOOD COUNT 3.41 X10'6 (4.20-5.60); RED CELL DISTRIBUTION WIDTH 15.2 % (11.5-14.5); WHITE BLOOD COUNT 5.4 X10'3 (4.5-11.0)
[2024-02-15 07:47] LABS: ALANINE AMINOTRANSFERASE 30 U/L (12-78); ALBUMIN 2.5 G/DL (3.4-5.0); ALBUMIN/GLOBULIN RATIO 0.7 (1.1-1.5); ALKALINE PHOSPHATASE 79 IU/L (46-116); ANION GAP 9 (8-16); ASPARTATE AMINO TRANSFERASE 28 U/L (10-37); BILIRUBIN,TOTAL 0.5 MG/DL (0.1-1.0); BLOOD UREA NITROGEN 33 MG/DL (7-18); BUN/CREATININE RATIO 16.8 (10.0-20.0); CALCIUM 8.8 MG/DL (8.5-10.1); CHLORIDE 101 MMOL/L (99-107); CREATININE 1.97 MG/DL (0.40-0.90); GLUCOSE 152 MG/DL (70-104); POTASSIUM 4.1 MMOL/L (3.5-5.1); SODIUM 139 MMOL/L (135-145); TOTAL CARBON DIOXIDE 28.7 MMOL/L (24-32); TOTAL PROTEIN 6.3 G/DL (6.4-8.2); eCRCL 34 ML/MIN; eGFR 26 ML/MIN
[2024-02-15] MEDS: enoxaparin 30mg/0.3ml syringe SUBCUT SCH (08:23)
[2024-02-15 08:25] LABS: FERRITIN 117 NG/ML (8-252)
[2024-02-15] MEDS: methylnaltrexone br 12mg/0.6ml inj***SubQ only SQ PRN (08:32)
[2024-02-15 08:48] LABS: % IRON SATURATION 10 % (11-46); IRON 32 UG/DL (49-151); TOTAL IRON BINDING CAPACITY 314 UG/DL (259-388)
[2024-02-16] VITALS (9 sets, daily range): BP systolic 99–169; BP diastolic 55–72; PULSE 68–84; RESP 14–18; TEMP 97–98.6; O2SAT 72–94
[2024-02-16] MEDS: OXAZEpam 15mg capsule PO PRN (04:01)
[2024-02-16 08:29] LABS: ALANINE AMINOTRANSFERASE 29 U/L (12-78); ALBUMIN 2.7 G/DL (3.4-5.0); ALBUMIN/GLOBULIN RATIO 0.7 (1.1-1.5); ALKALINE PHOSPHATASE 82 IU/L (46-116); ANION GAP 8 (8-16); ASPARTATE AMINO TRANSFERASE 24 U/L (10-37); BILIRUBIN,TOTAL 0.5 MG/DL (0.1-1.0); BLOOD UREA NITROGEN 28 MG/DL (7-18); BUN/CREATININE RATIO 14.9 (10.0-20.0); CHLORIDE 102 MMOL/L (99-107); CREATININE 1.88 MG/DL (0.40-0.90); GLUCOSE 168 MG/DL (70-104); POTASSIUM 3.7 MMOL/L (3.5-5.1); SODIUM 136 MMOL/L (135-145); TOTAL CARBON DIOXIDE 26.1 MMOL/L (24-32); TOTAL PROTEIN 6.8 G/DL (6.4-8.2); eCRCL 36 ML/MIN; eGFR 28 ML/MIN
[2024-02-16 08:30] LABS: BASOPHILS % (AUTO) 0.5 % (0-1); EOSINOPHILS # (AUTO) 0.3 X10'3 (0-0.9); EOSINOPHILS % (AUTO) 4.3 % (0-6); HEMATOCRIT 26.2 % (35.0-45.0); HEMOGLOBIN 8.4 g/dl (12.0-16.0); LYMPHOCYTES # (AUTO) 1.4 X10'3 (1.1-4.8); LYMPHOCYTES % (AUTO) 21.3 % (21-51); MEAN CORPUSCULAR HEMOGLOBIN 24.3 PG (27.0-31.0); MEAN CORPUSCULAR HGB CONC 32.1 g/dL (33.0-36.5); MEAN CORPUSCULAR VOLUME 75.5 FL (78-98); MEAN PLATELET VOLUME 7.5 FL (7.4-10.4); MONOCYTES # (AUTO) 0.6 X10'3 (0-0.9); MONOCYTES % (AUTO) 8.8 % (2-12); NEUTROPHILS # (AUTO) 4.3 X10'3 (1.8-7.7); NEUTROPHILS % (AUTO) 65.1 % (42-75); PLATELET COUNT 366 X10'3 (140-440); RED BLOOD COUNT 3.47 X10'6 (4.20-5.60); RED CELL DISTRIBUTION WIDTH 15.7 % (11.5-14.5); WHITE BLOOD COUNT 6.6 X10'3 (4.5-11.0)
[2024-02-17] VITALS (8 sets, daily range): BP systolic 99–157; BP diastolic 48–77; PULSE 64–78; RESP 14–21; TEMP 97.3–98.5; O2SAT 91–97
[2024-02-17 02:48] LABS: BILIRUBIN,URINE NEGATIVE (Neg); CLARITY,URINE CLEAR (Clear); COLOR,URINE STRAW (Yellow); GLUCOSE, URINE NEGATIVE (Neg); KETONES,URINE NEGATIVE (Neg); LEUKOCYTE ESTERASE ,URINE NEGATIVE (Neg); NITRITES, URINE NEGATIVE (Neg); OCCULT BLOOD,URINE NEGATIVE (Neg); PROTEIN,URINE NEGATIVE (Neg); UROBILINOGEN,URINE 0.2 E.U/dL (0.2-1.0)
[2024-02-17 02:57] LABS: URINE AMPHETAMINE SCREEN NEGATIVE (Neg); URINE BARBITUATE SCREEN NEGATIVE (Neg); URINE BENZODIAZEPINES SCREEN NEGATIVE (Neg); URINE CANNABINOID SCREEN NEGATIVE (Neg); URINE COCAINE SCREEN NEGATIVE (Neg); URINE METHADONE SCREEN NEGATIVE (Neg); URINE OPIATE SCREEN POSITIVE (Neg); URINE PHENCYCLIDINE SCREEN NEGATIVE (Neg)
[2024-02-17 03:18] LABS: UA COLLECTION TYPE CLN CATCH MIDSTREAM
[2024-02-17] MEDS: enoxaparin 40mg/0.4ml syringe SUBCUT SCH (09:23)
[2024-02-17] MEDS: MESSAGE TO PHARMACY IJ ONE (11:50)
[2024-02-17 12:59] LABS: APTT 31 SECONDS (22-32)
[2024-02-17 13:00] LABS: INR 0.9 INR
[2024-02-17] MEDS: MESSAGE TO NURSING PO ONE ×4 (13:53→13:54)
[2024-02-17 14:10] LABS: ABG BASE EXCESS -2.2 mmol/L (-2.0-2.0); ABG HCO3 21.2 mmol/L (22.0-26.0); ABG OXYGEN SATURATION 96.6 % (94-97); ABG PCO2 (T) 31.2 mmHg (32.0-45.0); ABG PH (T) 7.451 (7.350-7.450); ABG PO2 (T) 80.8 mmHg (75.0-100.0); ALLEN'S TEST POSITIVE; FCOHb 1.8 % (0.0-3.9); FHHb 3.3 % (0.0-5.0); FMetHb 0.3 % (0.0-1.5); FO2Hb 94.6 % (94-97); TOTAL HEMOGLOBIN 8.9 G/dl (12.0-16.0)
[2024-02-17] MEDS ORDERED: LISI40TA13 PO (14:17)
[2024-02-17] MEDS ORDERED: CHOL500049 PO (14:17)
[2024-02-17] MEDS ORDERED: DAPA10TA PO (14:17)
[2024-02-17] MEDS ORDERED: METF-438 PO (14:17)
[2024-02-17] MEDS ORDERED: OMEG-220 PO (14:17)
[2024-02-17] MEDS ORDERED: INSU100I8 SQ (14:17)
[2024-02-17] MEDS ORDERED: MAGN250T39 PO (14:17)
[2024-02-17] MEDS ORDERED: LANTUS SUBCUT (14:19)
[2024-02-17 15:07] LABS: BASOPHILS % (AUTO) 0.8 % (0-1); EOSINOPHILS # (AUTO) 0.2 X10'3 (0-0.9); EOSINOPHILS % (AUTO) 3.1 % (0-6); HEMATOCRIT 25.2 % (35.0-45.0); HEMOGLOBIN 8.2 g/dl (12.0-16.0); LYMPHOCYTES # (AUTO) 1.7 X10'3 (1.1-4.8); LYMPHOCYTES % (AUTO) 25.9 % (21-51); MEAN CORPUSCULAR HEMOGLOBIN 24.3 PG (27.0-31.0); MEAN CORPUSCULAR HGB CONC 32.4 g/dL (33.0-36.5); MEAN CORPUSCULAR VOLUME 75.1 FL (78-98); MEAN PLATELET VOLUME 7.8 FL (7.4-10.4); MONOCYTES # (AUTO) 0.6 X10'3 (0-0.9); MONOCYTES % (AUTO) 9.6 % (2-12); NEUTROPHILS # (AUTO) 3.9 X10'3 (1.8-7.7); NEUTROPHILS % (AUTO) 60.6 % (42-75); PLATELET COUNT 382 X10'3 (140-440); RED BLOOD COUNT 3.35 X10'6 (4.20-5.60); RED CELL DISTRIBUTION WIDTH 15.8 % (11.5-14.5); WHITE BLOOD COUNT 6.4 X10'3 (4.5-11.0)
[2024-02-17 15:21] LABS: ALANINE AMINOTRANSFERASE 27 U/L (12-78); ALBUMIN 2.6 G/DL (3.4-5.0); ALBUMIN/GLOBULIN RATIO 0.7 (1.1-1.5); ALKALINE PHOSPHATASE 83 IU/L (46-116); ANION GAP 8 (8-16); ASPARTATE AMINO TRANSFERASE 20 U/L (10-37); BILIRUBIN,TOTAL 0.4 MG/DL (0.1-1.0); BLOOD UREA NITROGEN 25 MG/DL (7-18); BUN/CREATININE RATIO 14.1 (10.0-20.0); CALCIUM 8.7 MG/DL (8.5-10.1); CHLORIDE 106 MMOL/L (99-107); CREATININE 1.77 MG/DL (0.40-0.90); GLUCOSE 73 MG/DL (70-104); POTASSIUM 3.9 MMOL/L (3.5-5.1); SODIUM 140 MMOL/L (135-145); TOTAL CARBON DIOXIDE 25.9 MMOL/L (24-32); TOTAL PROTEIN 6.6 G/DL (6.4-8.2); eCRCL 38 ML/MIN; eGFR 30 ML/MIN
[2024-02-18] VITALS (26 sets, daily range): BP systolic 106–155; BP diastolic 51–90; PULSE 69–88; RESP 10–23; TEMP 97.3–97.9; O2SAT 90–100
[2024-02-18] MEDS ORDERED: dextrose 50%-water 50ml dispensing syringe IV PRN ×2 (05:30→18:30)
[2024-02-18] MEDS: Insulin Reg/NS 100units/100mL 100 ML IV SCH (05:30)
[2024-02-18] MEDS: vancomycin/NS 1 GM ADD-VANTAGE 250 ML IV ONE (05:30)
[2024-02-18] MEDS: cefazolin 2gm/D5W 100mL 100 ML IV ONE (05:30)
[2024-02-18] MEDS: gabapentin 400mg capsule PO ONE (07:43)
[2024-02-18 07:58] LABS: BASOPHILS % (AUTO) 0.7 % (0-1); EOSINOPHILS # (AUTO) 0.2 X10'3 (0-0.9); HEMATOCRIT 25.7 % (35.0-45.0); HEMOGLOBIN 8.4 g/dl (12.0-16.0); LYMPHOCYTES # (AUTO) 1.2 X10'3 (1.1-4.8); LYMPHOCYTES % (AUTO) 20.8 % (21-51); MEAN CORPUSCULAR HEMOGLOBIN 24.4 PG (27.0-31.0); MEAN CORPUSCULAR HGB CONC 32.5 g/dL (33.0-36.5); MEAN CORPUSCULAR VOLUME 75.2 FL (78-98); MEAN PLATELET VOLUME 7.2 FL (7.4-10.4); MONOCYTES # (AUTO) 0.4 X10'3 (0-0.9); MONOCYTES % (AUTO) 7.8 % (2-12); NEUTROPHILS # (AUTO) 3.8 X10'3 (1.8-7.7); NEUTROPHILS % (AUTO) 66.7 % (42-75); PLATELET COUNT 360 X10'3 (140-440); RED BLOOD COUNT 3.42 X10'6 (4.20-5.60); RED CELL DISTRIBUTION WIDTH 15.8 % (11.5-14.5); WHITE BLOOD COUNT 5.7 X10'3 (4.5-11.0)
[2024-02-18 08:34] LABS: ALBUMIN 2.4 G/DL (3.4-5.0); ANION GAP 9 (8-16); BILIRUBIN,TOTAL 0.4 MG/DL (0.1-1.0); BLOOD UREA NITROGEN 25 MG/DL (7-18); BUN/CREATININE RATIO 13.7 (10.0-20.0); CALCIUM 8.9 MG/DL (8.5-10.1); CHLORIDE 106 MMOL/L (99-107); CREATININE 1.82 MG/DL (0.40-0.90); GLUCOSE 158 MG/DL (70-104); POTASSIUM 3.8 MMOL/L (3.5-5.1); SODIUM 141 MMOL/L (135-145); TOTAL CARBON DIOXIDE 26.4 MMOL/L (24-32); TOTAL PROTEIN 6.1 G/DL (6.4-8.2); eCRCL 37 ML/MIN; eGFR 29 ML/MIN
[2024-02-18 08:35] LABS: ALANINE AMINOTRANSFERASE 26 U/L (12-78); ALBUMIN/GLOBULIN RATIO 0.6 (1.1-1.5); ALKALINE PHOSPHATASE 82 IU/L (46-116); ASPARTATE AMINO TRANSFERASE 25 U/L (10-37)
[2024-02-18] MEDS: MESSAGE TO NURSING PO ONE (09:56)
[2024-02-18] MEDS: mupirocin 2% nasal ointment 1gm UD NS ONE (10:13)
[2024-02-18] MEDS ORDERED: MIDAZolam 1mg/ml 10ml vial ONE (12:59)
[2024-02-18] MEDS ORDERED: insulin glargine (Lantus) pen - multi-dose SQ PRN (13:30)
[2024-02-18 14:07] LABS: INR 0.9 INR; PRE OP PARTIAL THROMB. TIME 27 SECONDS (22-32); PROTHROMBIN TIME 10.1 SECONDS (9.0-12.0)
[2024-02-18] MEDS ORDERED: aminocaproic acid 250 MG/1 ML inj. ONE (14:30)
[2024-02-18] MEDS: famotidine/PF 10 mg/ml inj IV ONE (15:20)
[2024-02-18] MEDS: LORazepam 2 mg/ml vial IV ONE (15:20)
[2024-02-18] MEDS ORDERED: isoflurane 100ml inhalation liquid IH ONE (15:24)
[2024-02-18 16:25] LABS: ABG BASE EXCESS VENOUS -0.4 mmol/L (-2.0 - 2.0); ABG HCO3 VENOUS 23.9 mmol/L (21.0-28.0); ABG OXYGEN SATURATION VENOUS 85.5 % (75 - 99 %); ABG PCO2 VENOUS 37.9 mmHg (38.0-51.0); ABG PH (VENOUS) 7.418 (7.310-7.450); ABG PO2 VENOUS 50.8 mmHg (25.0-35.0); CL (ABG) 104 mmol/L (99-107); FCOHb VENOUS 0.6 % (0.0- 3.9); FHHb VENOUS 14.4 %; FMetHb VENOUS 0.3 % (0.0 - 0.5); FO2Hb VENOUS 84.7 %; GLUCOSE (ABG) 142 mg/dl (70-104); IONIZED CA (ABG) 1.18 mmol/L (1.10-1.30); K (ABG) 3.8 mmol/L (3.5-5.1); TOTAL HEMOGLOBIN 8.9 G/dl (12.0-16.0)
[2024-02-18 16:43] LABS: ABG BASE EXCESS -2.3 mmol/L (-2.0-2.0); ABG OXYGEN SATURATION 99.8 % (94-97); ABG PH 7.463 (7.350-7.450); ABG PO2 317.2 mmHg (75.0-100.0); CL (ABG) 103 mmol/L (99-107); FCOHb 0.6 % (0.0-3.9); FHHb 0.2 % (0.0-5.0); FMetHb 0.3 % (0.0-1.5); FO2Hb 98.9 % (94-97); GLUCOSE (ABG) 169 mg/dl (70-104); IONIZED CA (ABG) 1.15 mmol/L (1.10-1.30); K (ABG) 3.9 mmol/L (3.5-5.1); TOTAL HEMOGLOBIN 8.1 G/dl (12.0-16.0)
[2024-02-18] MEDS: epiNEPHrine 1 mg/ml inj ONE (16:45)
[2024-02-18] MEDS: BUPIVAcaine/PF 2.5mg/ml (0.25%) 10ml vial ONE (16:45)
[2024-02-18] MEDS: ceFAZolin 1000mg inj ONE (16:45)
[2024-02-18] MEDS ORDERED: fentaNYL /PF 50mcg/ml 5ml ampule ONE (16:55)
[2024-02-18] MEDS ORDERED: rocuronium 10mg/ml inj IV ONE ×3 (16:55)
[2024-02-18] MEDS ORDERED: propofol inj 20 ML IV ONE (16:55)
[2024-02-18] MEDS ORDERED: LIDOcaine 2% (20mg/ml) 5ml vial ONE (16:56)
[2024-02-18] MEDS ORDERED: phenylephrine 10mg/ml inj. -priapism dosing ONE (16:56)
[2024-02-18] MEDS ORDERED: heparin 1,000unit/ml 10ml vial 10 ML ONE (17:04)
[2024-02-18] MEDS ORDERED: albumin (Human) 5% 250ml 250 ML IV ONE ×2 (17:29)
[2024-02-18 17:53] LABS: ABG BASE EXCESS -4.6 mmol/L (-2.0-2.0); ABG HCO3 20.6 mmol/L (22.0-26.0); ABG OXYGEN SATURATION 95.3 % (94-97); ABG PCO2 38.1 mmHg (32.0-45.0); ABG PH 7.351 (7.350-7.450); ABG PO2 86.4 mmHg (75.0-100.0); CL (ABG) 106 mmol/L (99-107); FCOHb 0.5 % (0.0-3.9); FHHb 4.7 % (0.0-5.0); FMetHb 0.3 % (0.0-1.5); FO2Hb 94.5 % (94-97); GLUCOSE (ABG) 176 mg/dl (70-104); IONIZED CA (ABG) 1.13 mmol/L (1.10-1.30); K (ABG) 3.3 mmol/L (3.5-5.1); TOTAL HEMOGLOBIN 7.2 G/dl (12.0-16.0)
[2024-02-18] MEDS ORDERED: dexamethasone sod phosphate 4mg/ml inj. ONE (18:04)
[2024-02-18] MEDS ORDERED: ondansetron/PF 4mg/2ml inj ONE (18:04)
[2024-02-18] MEDS ORDERED: BUPIVAcaine/PF 2.5mg/ml (0.25%) 10ml vial ONE (18:07)
[2024-02-18] MEDS ORDERED: fentaNYL/PF 50MCG/1 ML 2ML syringe IV PRN (18:10)
[2024-02-18] MEDS ORDERED: FENTANYL-0.9 % NACL/PF 100 ML IV PRN (18:10)
[2024-02-18] MEDS ORDERED: midazolam 1 mg/ML 2ml injection IV PRN (18:10)
[2024-02-18] MEDS ORDERED: metoclopramide 5 mg/ml inj IV PRN (18:30)
[2024-02-18] MEDS ORDERED: Neutra Phos packet PO PRN (18:30)
[2024-02-18] MEDS ORDERED: sodium phosphate inj. 15 MMOL in dextrose 5%-water 250 ML IV PRN (18:30)
[2024-02-18] MEDS ORDERED: sodium phosphate inj. 30 MMOL in dextrose 5%-water 250 ML IV PRN (18:30)
[2024-02-18] MEDS: sodium chloride 0.45% 1,000 ML IV SCH (18:30)
[2024-02-18] MEDS ORDERED: mineral oil 133ml enema RC PRN (18:30)
[2024-02-18] MEDS ORDERED: Insulin Reg/NS 100units/100mL 100 ML IV SCH (18:30)
[2024-02-18] MEDS ORDERED: potassium Cl 40MEQ/1/2NS 520ml 520 ML IV PRN (18:30)
[2024-02-18] MEDS ORDERED: acetaminophen 325mg tablet PO PRN ×2 (18:30)
[2024-02-18] MEDS ORDERED: bisacodyl 10mg suppository rectal RC PRN (18:30)
[2024-02-18] MEDS ORDERED: potassium Cl 20 mEq SR tablet PO PRN (18:30)
[2024-02-18] MEDS ORDERED: potassium CL 10mEq/100ml bag 100 ML IV PRN (18:30)
[2024-02-18] MEDS: ringers solution, lacted 1,000 ML IV ONE (18:30)
[2024-02-18] MEDS: nitroGLYCERIN-Tridil 50MG/D5W 250 ML IV SCH (18:30)
[2024-02-18 19:09] LABS: BASOPHILS % (AUTO) 0.5 % (0-1); EOSINOPHILS # (AUTO) 0.2 X10'3 (0-0.9); EOSINOPHILS % (AUTO) 1.4 % (0-6); LYMPHOCYTES # (AUTO) 0.9 X10'3 (1.1-4.8); LYMPHOCYTES % (AUTO) 8.6 % (21-51); MEAN CORPUSCULAR HEMOGLOBIN 25.1 PG (27.0-31.0); MEAN CORPUSCULAR HGB CONC 33.5 g/dL (33.0-36.5); MEAN PLATELET VOLUME 7.2 FL (7.4-10.4); MONOCYTES # (AUTO) 0.5 X10'3 (0-0.9); MONOCYTES % (AUTO) 4.6 % (2-12); NEUTROPHILS # (AUTO) 9.2 X10'3 (1.8-7.7); NEUTROPHILS % (AUTO) 84.9 % (42-75); PLATELET COUNT 277 X10'3 (140-440); RED BLOOD COUNT 2.72 X10'6 (4.20-5.60); WHITE BLOOD COUNT 10.8 X10'3 (4.5-11.0)
[2024-02-18 19:20] LABS: APTT 26 SECONDS (22-32)
[2024-02-18 19:26] LABS: ALANINE AMINOTRANSFERASE 22 U/L (12-78); ALBUMIN 2.5 G/DL (3.4-5.0); ALBUMIN/GLOBULIN RATIO 0.9 (1.1-1.5); ALKALINE PHOSPHATASE 67 IU/L (46-116); ANION GAP 9 (8-16); ASPARTATE AMINO TRANSFERASE 24 U/L (10-37); BILIRUBIN,TOTAL 0.3 MG/DL (0.1-1.0); BLOOD UREA NITROGEN 22 MG/DL (7-18); BUN/CREATININE RATIO 15.3 (10.0-20.0); CALCIUM 7.8 MG/DL (8.5-10.1); CHLORIDE 106 MMOL/L (99-107); CREATININE 1.44 MG/DL (0.40-0.90); GLUCOSE 159 MG/DL (70-104); MAGNESIUM 1.5 MG/DL (1.5-2.4); PHOSPHORUS 3.6 MG/DL (2.3-4.5); POTASSIUM 3.4 MMOL/L (3.5-5.1); SODIUM 140 MMOL/L (135-145); TOTAL CARBON DIOXIDE 25.1 MMOL/L (24-32); TOTAL PROTEIN 5.4 G/DL (6.4-8.2); eCRCL 47 ML/MIN; eGFR 38 ML/MIN
[2024-02-18 19:32] LABS: ABG BASE EXCESS -4.6 mmol/L (-2.0-2.0); ABG HCO3 21.4 mmol/L (22.0-26.0); ABG OXYGEN SATURATION 93.7 % (94-97); ABG PCO2 (T) 41.7 mmHg (32.0-45.0); ABG PH (T) 7.323 (7.350-7.450); ABG PO2 (T) 71.7 mmHg (75.0-100.0); FCOHb 1.4 % (0.0-3.9); FHHb 6.2 % (0.0-5.0); FMetHb 0.3 % (0.0-1.5); FO2Hb 92.1 % (94-97); MODE SIMV; PATIENT TEMPERATURE 35.9; PEEP 5 cm H2O; RESPIRATORY RATE 12 b/min; TIDAL VOLUME 400 mL; TOTAL HEMOGLOBIN 7.5 G/dl (12.0-16.0)
[2024-02-18 19:34] LABS: HEMATOCRIT 20.4 % (35.0-45.0); HEMOGLOBIN 6.8 g/dl (12.0-16.0)
[2024-02-18] MEDS: morphine 4 MG/ML inj SYRINge IV PRN (19:43)
[2024-02-18] MEDS: vancomycin/NS 1 GM ADD-VANTAGE 250 ML IV SCH (20:23)
[2024-02-18] MEDS: mupirocin 2% nasal ointment 1gm UD NS SCH (20:23)
[2024-02-18] MEDS: sennosides/docusate sodium tablet PO SCH (20:23)
[2024-02-18] MEDS: potassium Cl 20mEq/100mL bag 100 ML IV PRN (20:29)
[2024-02-18] MEDS: niCARDipine-NS 40mg/200ml IVPB 200 ML IV PRN (20:55)
[2024-02-18 21:15] LABS: ELLIPTOCYTES FEW; LARGE PLATELETS FEW; MICROCYTOSIS 1+; PLATELET ESTIMATE NORMAL; POLYCHROMASIA FEW
[2024-02-18] MEDS: atorvastatin 10mg tablet PO SCH (21:18)
[2024-02-18] MEDS: gabapentin 300mg capsule PO SCH (21:18)
[2024-02-18] MEDS: magnesium 2GM in 50ml NS 50 ML IV PRN (21:40)
[2024-02-18] MEDS: ceFAZolin/D5W- 1GM premix 50 ML IV SCH (23:55)
[2024-02-19] VITALS (31 sets, daily range): BP systolic 96–157; BP diastolic 48–80; PULSE 67–107; RESP 12–25; O2SAT 78–99
[2024-02-19] MEDS: magnesium 4gm in 100ml NS 100 ML IV PRN (00:49)
[2024-02-19 01:27] LABS: BASOPHILS % (AUTO) 0.1 % (0-1); EOSINOPHILS % (AUTO) 0 % (0-6); HEMATOCRIT 29.6 % (35.0-45.0); HEMOGLOBIN 9.7 g/dl (12.0-16.0); LYMPHOCYTES # (AUTO) 0.4 X10'3 (1.1-4.8); LYMPHOCYTES % (AUTO) 2.9 % (21-51); MEAN CORPUSCULAR HEMOGLOBIN 25.8 PG (27.0-31.0); MEAN CORPUSCULAR HGB CONC 32.7 g/dL (33.0-36.5); MEAN PLATELET VOLUME 7.4 FL (7.4-10.4); MONOCYTES # (AUTO) 0.3 X10'3 (0-0.9); MONOCYTES % (AUTO) 2.5 % (2-12); NEUTROPHILS # (AUTO) 12.1 X10'3 (1.8-7.7); NEUTROPHILS % (AUTO) 94.5 % (42-75); PLATELET COUNT 318 X10'3 (140-440); RED BLOOD COUNT 3.74 X10'6 (4.20-5.60); RED CELL DISTRIBUTION WIDTH 17.6 % (11.5-14.5); WHITE BLOOD COUNT 12.8 X10'3 (4.5-11.0)
[2024-02-19 01:40] LABS: ALBUMIN 2.6 G/DL (3.4-5.0); ANION GAP 11 (8-16); BLOOD UREA NITROGEN 22 MG/DL (7-18); BUN/CREATININE RATIO 15.5 (10.0-20.0); CALCIUM 8.5 MG/DL (8.5-10.1); CHLORIDE 107 MMOL/L (99-107); CREATININE 1.42 MG/DL (0.40-0.90); GLUCOSE 120 MG/DL (70-104); MAGNESIUM 2.4 MG/DL (1.5-2.4); PHOSPHORUS 3.3 MG/DL (2.3-4.5); POTASSIUM 3.8 MMOL/L (3.5-5.1); SODIUM 140 MMOL/L (135-145); eCRCL 47 ML/MIN; eGFR 39 ML/MIN
[2024-02-19 03:11] LABS: ABG BASE EXCESS -4.3 mmol/L (-2.0-2.0); ABG HCO3 20.3 mmol/L (22.0-26.0); ABG OXYGEN SATURATION 90.9 % (94-97); ABG PH (T) 7.361 (7.350-7.450); FCOHb 0.7 % (0.0-3.9); FMetHb 0.3 % (0.0-1.5); MODE SIMV VC; PATIENT TEMPERATURE 37.8; PEEP 5 cm H2O; RESPIRATORY RATE 12 b/min; TIDAL VOLUME 400 mL; TOTAL HEMOGLOBIN 10.5 G/dl (12.0-16.0)
[2024-02-19] MEDS: HYDROcodone/acetaminophen 10/325mg tab PO PRN ×2 (04:53→14:20)
[2024-02-19 05:40] LABS: BASOPHILS % (AUTO) 0.2 % (0-1); EOSINOPHILS % (AUTO) 0 % (0-6); HEMATOCRIT 29.3 % (35.0-45.0); HEMOGLOBIN 9.7 g/dl (12.0-16.0); LYMPHOCYTES # (AUTO) 0.4 X10'3 (1.1-4.8); LYMPHOCYTES % (AUTO) 2.4 % (21-51); MEAN CORPUSCULAR HGB CONC 33.1 g/dL (33.0-36.5); MEAN CORPUSCULAR VOLUME 78.7 FL (78-98); MEAN PLATELET VOLUME 7.4 FL (7.4-10.4); MONOCYTES # (AUTO) 0.5 X10'3 (0-0.9); MONOCYTES % (AUTO) 3.3 % (2-12); NEUTROPHILS # (AUTO) 14.7 X10'3 (1.8-7.7); NEUTROPHILS % (AUTO) 94.1 % (42-75); PLATELET COUNT 321 X10'3 (140-440); RED BLOOD COUNT 3.73 X10'6 (4.20-5.60); RED CELL DISTRIBUTION WIDTH 17.6 % (11.5-14.5); WHITE BLOOD COUNT 15.6 X10'3 (4.5-11.0)
[2024-02-19 05:48] LABS: ALANINE AMINOTRANSFERASE 25 U/L (12-78); ALBUMIN 2.7 G/DL (3.4-5.0); ALBUMIN/GLOBULIN RATIO 0.8 (1.1-1.5); ALKALINE PHOSPHATASE 65 IU/L (46-116); ANION GAP 16 (8-16); ASPARTATE AMINO TRANSFERASE 29 U/L (10-37); BILIRUBIN,TOTAL 0.5 MG/DL (0.1-1.0); BLOOD UREA NITROGEN 23 MG/DL (7-18); BUN/CREATININE RATIO 16.4 (10.0-20.0); CALCIUM 8.8 MG/DL (8.5-10.1); CHLORIDE 104 MMOL/L (99-107); GLUCOSE 145 MG/DL (70-104); SODIUM 137 MMOL/L (135-145); TOTAL CARBON DIOXIDE 17.5 MMOL/L (24-32); TOTAL PROTEIN 6.2 G/DL (6.4-8.2); eCRCL 48 ML/MIN; eGFR 39 ML/MIN
[2024-02-19 06:33] LABS: ACTIVATED CLOTTING TIME 283 SEC (101-148)
[2024-02-19 06:33] LABS: ACTIVATED CLOTTING TIME 150 SEC (101-148)
[2024-02-19] MEDS: aspirin 81mg tab.chew PO SCH (07:32)
[2024-02-19] MEDS: metoprolol tartrate 12.5mg (1/2 tablet) PO SCH (08:00)
[2024-02-19] MEDS: albumin (Human) 5% 250ml 250 ML IV PRN (09:08)
[2024-02-19] MEDS: insulin glargine (Lantus) pen - multi-dose SQ PRN (12:38)
[2024-02-19 16:46] LABS: ALBUMIN 2.6 G/DL (3.4-5.0); ANION GAP 10 (8-16); BLOOD UREA NITROGEN 25 MG/DL (7-18); BUN/CREATININE RATIO 15.6 (10.0-20.0); CHLORIDE 104 MMOL/L (99-107); GLUCOSE 225 MG/DL (70-104); MAGNESIUM 2.7 MG/DL (1.5-2.4); PHOSPHORUS 3.9 MG/DL (2.3-4.5); POTASSIUM 4.8 MMOL/L (3.5-5.1); SODIUM 135 MMOL/L (135-145); TOTAL CARBON DIOXIDE 21.1 MMOL/L (24-32); eCRCL 42 ML/MIN; eGFR 34 ML/MIN
[2024-02-19 16:52] LABS: CALCIUM 8.6 MG/DL (8.5-10.1)
[2024-02-19] MEDS ORDERED: INSULIN LISPRO 100 UNIT/ML INSULN.PEN MULTI-DOSE SQ SCH (18:00)
[2024-02-19] MEDS: morphine 2 MG/ML inj. syringe IV PRN (19:48)
[2024-02-19] MEDS ORDERED: mineral oil/petrolatum ophthal oint EACHEYE SCH (20:00)
[2024-02-19] MEDS: insulin glargine (Lantus) pen - multi-dose SQ SCH (21:21)
[2024-02-19] MEDS: insulin Lispro (HumaLOG) vial - multi-dose SQ SCH (21:23)
[2024-02-20] VITALS (34 sets, daily range): BP systolic 93–158; BP diastolic 54–94; PULSE 70–123; RESP 13–28; O2SAT 88–97
[2024-02-20] MEDS: ceFAZolin/D5W- 1GM premix 50 ML IV ONE (00:30)
[2024-02-20 02:40] LABS: BASOPHILS % (AUTO) 0.3 % (0-1); EOSINOPHILS % (AUTO) 0.1 % (0-6); HEMATOCRIT 28.1 % (35.0-45.0); HEMOGLOBIN 9.3 g/dl (12.0-16.0); LYMPHOCYTES % (AUTO) 8.2 % (21-51); MEAN CORPUSCULAR HEMOGLOBIN 26.1 PG (27.0-31.0); MEAN CORPUSCULAR VOLUME 79.1 FL (78-98); MONOCYTES # (AUTO) 1.2 X10'3 (0-0.9); MONOCYTES % (AUTO) 9.4 % (2-12); NEUTROPHILS # (AUTO) 10.4 X10'3 (1.8-7.7); PLATELET COUNT 288 X10'3 (140-440); RED BLOOD COUNT 3.55 X10'6 (4.20-5.60); RED CELL DISTRIBUTION WIDTH 18.1 % (11.5-14.5); WHITE BLOOD COUNT 12.6 X10'3 (4.5-11.0)
[2024-02-20 02:58] LABS: ANION GAP 8 (8-16); CHLORIDE 104 MMOL/L (99-107); GLUCOSE 188 MG/DL (70-104); POTASSIUM 4.8 MMOL/L (3.5-5.1); SODIUM 136 MMOL/L (135-145); TOTAL CARBON DIOXIDE 23.8 MMOL/L (24-32)
[2024-02-20 02:59] LABS: ALBUMIN 2.6 G/DL (3.4-5.0); BLOOD UREA NITROGEN 25 MG/DL (7-18); BUN/CREATININE RATIO 14.9 (10.0-20.0); CALCIUM 8.6 MG/DL (8.5-10.1); CREATININE 1.68 MG/DL (0.40-0.90); MAGNESIUM 2.2 MG/DL (1.5-2.4); eCRCL 40 ML/MIN; eGFR 32 ML/MIN
[2024-02-20] MEDS: pantoprazole 40mg Tablet.DR PO SCH (08:03)
[2024-02-20] MEDS: atropine 0.1mg/ml 10ml syringe ONE (09:12)
[2024-02-20] MEDS: furosemide 20 MG/2 ML vial IV ONE (10:31)
[2024-02-20] MEDS: gabapentin 300mg capsule PO SCH (12:25)
[2024-02-20] MEDS: ringers solution, lacted 1,000 ML IV SCH (16:45)
[2024-02-20] MEDS ORDERED: fentaNYL/PF 50MCG/1 ML 2ML syringe IV PRN ×2 (16:45)
[2024-02-20] MEDS ORDERED: morphine 4 MG/ML inj SYRINge IV PRN (16:45)
[2024-02-20] MEDS ORDERED: ondansetron/PF 4mg/2ml inj IV PRN (16:45)
[2024-02-20] MEDS ORDERED: morphine 2 MG/ML inj. syringe IV PRN (16:45)
[2024-02-20] MEDS ORDERED: LIDOcaine 1% 30ml preserv. free vial ONE (17:22)
[2024-02-20] MEDS ORDERED: midazolam 1 mg/ML 2ml injection ONE ×3 (17:25→17:26)
[2024-02-20] MEDS ORDERED: propofol inj 20 ML IV ONE (17:26)
[2024-02-20] MEDS ORDERED: LIDOcaine 2% (20mg/ml) 5ml vial ONE (17:26)
[2024-02-20] MEDS ORDERED: BUPIVAcaine/PF 2.5mg/ml (0.25%) 10ml vial ONE (17:53)
[2024-02-20] MEDS ORDERED: ceFAZolin 1000mg inj ONE ×2 (17:58)
[2024-02-20] MEDS: LIDOcaine 1% 30ml preserv. free vial ONE (18:06)
[2024-02-20] MEDS: amiodarone 150mg/dext, iso-os 100 ML IV ONE (21:00)
[2024-02-20] MEDS: heparin, porcine 5000 units/ml vial SQ SCH (21:08)
[2024-02-20] MEDS: amiodarone/D5 360MG/200ML BAG 200 ML IV SCH (21:09)
[2024-02-21] VITALS (32 sets, daily range): BP systolic 106–210; BP diastolic 52–96; PULSE 69–122; RESP 11–35; O2SAT 86–95
[2024-02-21 02:42] LABS: BASOPHILS % (AUTO) 0.5 % (0-1); EOSINOPHILS # (AUTO) 0.2 X10'3 (0-0.9); EOSINOPHILS % (AUTO) 2.1 % (0-6); HEMATOCRIT 26.1 % (35.0-45.0); HEMOGLOBIN 8.8 g/dl (12.0-16.0); LYMPHOCYTES # (AUTO) 1.6 X10'3 (1.1-4.8); LYMPHOCYTES % (AUTO) 16.8 % (21-51); MEAN CORPUSCULAR HEMOGLOBIN 26.6 PG (27.0-31.0); MEAN CORPUSCULAR HGB CONC 33.8 g/dL (33.0-36.5); MEAN CORPUSCULAR VOLUME 78.6 FL (78-98); MEAN PLATELET VOLUME 7.9 FL (7.4-10.4); MONOCYTES # (AUTO) 0.9 X10'3 (0-0.9); MONOCYTES % (AUTO) 8.9 % (2-12); NEUTROPHILS % (AUTO) 71.7 % (42-75); PLATELET COUNT 283 X10'3 (140-440); RED BLOOD COUNT 3.33 X10'6 (4.20-5.60); RED CELL DISTRIBUTION WIDTH 18.4 % (11.5-14.5); WHITE BLOOD COUNT 9.8 X10'3 (4.5-11.0)
[2024-02-21 02:55] LABS: ALBUMIN 2.3 G/DL (3.4-5.0); ANION GAP 6 (8-16); BLOOD UREA NITROGEN 23 MG/DL (7-18); BUN/CREATININE RATIO 15.2 (10.0-20.0); CALCIUM 8.6 MG/DL (8.5-10.1); CHLORIDE 104 MMOL/L (99-107); CREATININE 1.51 MG/DL (0.40-0.90); GLUCOSE 193 MG/DL (70-104); MAGNESIUM 1.7 MG/DL (1.5-2.4); PHOSPHORUS 3.3 MG/DL (2.3-4.5); POTASSIUM 4.3 MMOL/L (3.5-5.1); SODIUM 137 MMOL/L (135-145); TOTAL CARBON DIOXIDE 27.3 MMOL/L (24-32); eCRCL 45 ML/MIN; eGFR 36 ML/MIN
[2024-02-21] MEDS: hydrALAZINE 20mg/ml inj. IV PRN (05:43)
[2024-02-21] MEDS: metoprolol tartrate 1mg/ml inj IV ONE (07:56)
[2024-02-21] MEDS: metoprolol tartrate 25mg tablet PO SCH ×2 (07:56→20:10)
[2024-02-21] MEDS: potassium Cl 40MEQ/270ML bag 250 ML IV PRN (09:18)
[2024-02-21] MEDS: furosemide 40mg/4ml inj IV ONE (09:18)
[2024-02-22] VITALS (25 sets, daily range): BP systolic 106–199; BP diastolic 54–91; PULSE 65–96; RESP 10–23; O2SAT 16–96
[2024-02-22 03:25] LABS: BASOPHILS # (AUTO) 0.1 X10'3 (0-0.2); BASOPHILS % (AUTO) 0.7 % (0-1); EOSINOPHILS # (AUTO) 0.3 X10'3 (0-0.9); EOSINOPHILS % (AUTO) 2.6 % (0-6); HEMATOCRIT 28.9 % (35.0-45.0); HEMOGLOBIN 9.5 g/dl (12.0-16.0); LYMPHOCYTES # (AUTO) 1.1 X10'3 (1.1-4.8); LYMPHOCYTES % (AUTO) 11.2 % (21-51); MEAN CORPUSCULAR HEMOGLOBIN 25.8 PG (27.0-31.0); MEAN CORPUSCULAR HGB CONC 32.9 g/dL (33.0-36.5); MEAN CORPUSCULAR VOLUME 78.3 FL (78-98); MONOCYTES # (AUTO) 0.7 X10'3 (0-0.9); NEUTROPHILS # (AUTO) 7.9 X10'3 (1.8-7.7); NEUTROPHILS % (AUTO) 78.5 % (42-75); PLATELET COUNT 325 X10'3 (140-440); RED BLOOD COUNT 3.69 X10'6 (4.20-5.60)
[2024-02-22 03:42] LABS: ALBUMIN 2.3 G/DL (3.4-5.0); ANION GAP 10 (8-16); BLOOD UREA NITROGEN 24 MG/DL (7-18); BUN/CREATININE RATIO 14.8 (10.0-20.0); CALCIUM 8.5 MG/DL (8.5-10.1); CHLORIDE 101 MMOL/L (99-107); CREATININE 1.62 MG/DL (0.40-0.90); GLUCOSE 225 MG/DL (70-104); MAGNESIUM 2.5 MG/DL (1.5-2.4); PHOSPHORUS 3.3 MG/DL (2.3-4.5); POTASSIUM 3.8 MMOL/L (3.5-5.1); SODIUM 137 MMOL/L (135-145); TOTAL CARBON DIOXIDE 26.2 MMOL/L (24-32); eCRCL 41 ML/MIN; eGFR 33 ML/MIN
[2024-02-22] MEDS: NUT.TX.GLUC.INTOLER,LAC-FR,SOY (GLUCERNA) 237 ML PO SCH (07:30)
[2024-02-22] MEDS: hydrALAZINE 20mg/ml inj. IV PRN (11:23)
[2024-02-22] MEDS: duloxetine 30mg CAPSULE.DR PO SCH (12:00)
[2024-02-22] MEDS: ondansetron/PF 4mg/2ml inj IV PRN (14:34)
[2024-02-22] MEDS: amiodarone 100mg tablet PO SCH (19:34)
[2024-02-23] VITALS (17 sets, daily range): BP systolic 110–170; BP diastolic 54–75; PULSE 60–83; RESP 11–22; TEMP 97.5–98.4; O2SAT 90–95
[2024-02-23 03:51] LABS: BASOPHILS % (AUTO) 0.7 % (0-1); EOSINOPHILS # (AUTO) 0.3 X10'3 (0-0.9); EOSINOPHILS % (AUTO) 4.6 % (0-6); HEMATOCRIT 25.5 % (35.0-45.0); HEMOGLOBIN 8.3 g/dl (12.0-16.0); LYMPHOCYTES % (AUTO) 14.1 % (21-51); MEAN CORPUSCULAR HEMOGLOBIN 25.5 PG (27.0-31.0); MEAN CORPUSCULAR HGB CONC 32.7 g/dL (33.0-36.5); MEAN CORPUSCULAR VOLUME 78.1 FL (78-98); MEAN PLATELET VOLUME 7.9 FL (7.4-10.4); MONOCYTES # (AUTO) 0.8 X10'3 (0-0.9); MONOCYTES % (AUTO) 11.9 % (2-12); NEUTROPHILS # (AUTO) 4.7 X10'3 (1.8-7.7); NEUTROPHILS % (AUTO) 68.7 % (42-75); PLATELET COUNT 324 X10'3 (140-440); RED BLOOD COUNT 3.27 X10'6 (4.20-5.60); RED CELL DISTRIBUTION WIDTH 17.7 % (11.5-14.5); WHITE BLOOD COUNT 6.9 X10'3 (4.5-11.0)
[2024-02-23 06:11] LABS: ALANINE AMINOTRANSFERASE 13 U/L (12-78); ALBUMIN 2.1 G/DL (3.4-5.0); ALBUMIN/GLOBULIN RATIO 0.6 (1.1-1.5); ALKALINE PHOSPHATASE 76 IU/L (46-116); ASPARTATE AMINO TRANSFERASE 13 U/L (10-37); BILIRUBIN,TOTAL 0.6 MG/DL (0.1-1.0); BLOOD UREA NITROGEN 24 MG/DL (7-18); BUN/CREATININE RATIO 17.6 (10.0-20.0); CALCIUM 8.6 MG/DL (8.5-10.1); CREATININE 1.36 MG/DL (0.40-0.90); GLUCOSE 164 MG/DL (70-104); MAGNESIUM 2.1 MG/DL (1.5-2.4); PHOSPHORUS 3.7 MG/DL (2.3-4.5); TOTAL PROTEIN 5.9 G/DL (6.4-8.2); eCRCL 49 ML/MIN; eGFR 41 ML/MIN
[2024-02-23 06:21] LABS: ANION GAP 11 (8-16); CHLORIDE 103 MMOL/L (99-107); POTASSIUM 4.1 MMOL/L (3.5-5.1); SODIUM 140 MMOL/L (135-145); TOTAL CARBON DIOXIDE 25.9 MMOL/L (24-32)
[2024-02-23] MEDS: furosemide 20 MG/2 ML vial IV ONE (12:10)
[2024-02-24] VITALS (13 sets, daily range): BP systolic 120–153; BP diastolic 58–79; PULSE 60–76; RESP 14–24; TEMP 97.6–98.1; O2SAT 90–100
[2024-02-24] MEDS: lisinopril 10 MG tablet PO SCH (10:35)
[2024-02-24] MEDS: clopidogrel 75mg tablet PO SCH (15:21)
[2024-02-25] VITALS (8 sets, daily range): BP systolic 106–147; BP diastolic 45–65; PULSE 60–62; RESP 11–18; TEMP 97–97.9; O2SAT 91–98
[2024-02-25 09:32] LABS: BASOPHILS % (AUTO) 0.6 % (0-1); EOSINOPHILS # (AUTO) 0.4 X10'3 (0-0.9); EOSINOPHILS % (AUTO) 4.9 % (0-6); HEMATOCRIT 28.3 % (35.0-45.0); HEMOGLOBIN 9.1 g/dl (12.0-16.0); LYMPHOCYTES # (AUTO) 1.4 X10'3 (1.1-4.8); MEAN CORPUSCULAR HEMOGLOBIN 25.2 PG (27.0-31.0); MEAN CORPUSCULAR HGB CONC 32.1 g/dL (33.0-36.5); MEAN CORPUSCULAR VOLUME 78.3 FL (78-98); MEAN PLATELET VOLUME 8.1 FL (7.4-10.4); MONOCYTES # (AUTO) 0.9 X10'3 (0-0.9); MONOCYTES % (AUTO) 11.2 % (2-12); NEUTROPHILS % (AUTO) 65.3 % (42-75); PLATELET COUNT 489 X10'3 (140-440); RED BLOOD COUNT 3.61 X10'6 (4.20-5.60); RED CELL DISTRIBUTION WIDTH 17.8 % (11.5-14.5); WHITE BLOOD COUNT 7.7 X10'3 (4.5-11.0)
[2024-02-25 09:43] LABS: ALANINE AMINOTRANSFERASE 12 U/L (12-78); ALBUMIN 2.2 G/DL (3.4-5.0); ALBUMIN/GLOBULIN RATIO 0.5 (1.1-1.5); ALKALINE PHOSPHATASE 77 IU/L (46-116); ANION GAP 7 (8-16); ASPARTATE AMINO TRANSFERASE 15 U/L (10-37); BILIRUBIN,TOTAL 0.5 MG/DL (0.1-1.0); BLOOD UREA NITROGEN 25 MG/DL (7-18); BUN/CREATININE RATIO 16.6 (10.0-20.0); CALCIUM 8.7 MG/DL (8.5-10.1); CHLORIDE 103 MMOL/L (99-107); CREATININE 1.51 MG/DL (0.40-0.90); GLUCOSE 120 MG/DL (70-104); POTASSIUM 4.5 MMOL/L (3.5-5.1); SODIUM 139 MMOL/L (135-145); TOTAL CARBON DIOXIDE 28.9 MMOL/L (24-32); TOTAL PROTEIN 6.3 G/DL (6.4-8.2); eCRCL 45 ML/MIN; eGFR 36 ML/MIN
[2024-02-25] MEDS: morphine 2 MG/ML inj. syringe IV ONE ×2 (13:24→22:58)
[2024-02-26] VITALS (10 sets, daily range): BP systolic 114–164; BP diastolic 53–84; PULSE 60–99; RESP 14–28; TEMP 96.9–98.2; O2SAT 90–94
[2024-02-26 07:17] LABS: BASOPHILS # (AUTO) 0.1 X10'3 (0-0.2); BASOPHILS % (AUTO) 0.7 % (0-1); EOSINOPHILS # (AUTO) 0.4 X10'3 (0-0.9); EOSINOPHILS % (AUTO) 4.3 % (0-6); HEMATOCRIT 29.3 % (35.0-45.0); HEMOGLOBIN 9.5 g/dl (12.0-16.0); LYMPHOCYTES # (AUTO) 1.5 X10'3 (1.1-4.8); LYMPHOCYTES % (AUTO) 18.1 % (21-51); MEAN CORPUSCULAR HEMOGLOBIN 25.5 PG (27.0-31.0); MEAN CORPUSCULAR HGB CONC 32.5 g/dL (33.0-36.5); MEAN CORPUSCULAR VOLUME 78.5 FL (78-98); MEAN PLATELET VOLUME 7.3 FL (7.4-10.4); MONOCYTES # (AUTO) 0.9 X10'3 (0-0.9); MONOCYTES % (AUTO) 10.5 % (2-12); NEUTROPHILS # (AUTO) 5.5 X10'3 (1.8-7.7); NEUTROPHILS % (AUTO) 66.4 % (42-75); PLATELET COUNT 490 X10'3 (140-440); RED BLOOD COUNT 3.73 X10'6 (4.20-5.60); RED CELL DISTRIBUTION WIDTH 17.8 % (11.5-14.5); WHITE BLOOD COUNT 8.3 X10'3 (4.5-11.0)
[2024-02-26 07:43] LABS: ALANINE AMINOTRANSFERASE 11 U/L (12-78); ALBUMIN 2.2 G/DL (3.4-5.0); ALBUMIN/GLOBULIN RATIO 0.6 (1.1-1.5); ALKALINE PHOSPHATASE 82 IU/L (46-116); ANION GAP 5 (8-16); ASPARTATE AMINO TRANSFERASE 10 U/L (10-37); BILIRUBIN,TOTAL 0.5 MG/DL (0.1-1.0); BLOOD UREA NITROGEN 28 MG/DL (7-18); BUN/CREATININE RATIO 18.9 (10.0-20.0); CALCIUM 8.6 MG/DL (8.5-10.1); CHLORIDE 103 MMOL/L (99-107); CREATININE 1.48 MG/DL (0.40-0.90); GLUCOSE 86 MG/DL (70-104); MAGNESIUM 1.8 MG/DL (1.5-2.4); PHOSPHORUS 4.2 MG/DL (2.3-4.5); POTASSIUM 4.5 MMOL/L (3.5-5.1); SODIUM 138 MMOL/L (135-145); TOTAL CARBON DIOXIDE 30.4 MMOL/L (24-32); TOTAL PROTEIN 6.2 G/DL (6.4-8.2); eCRCL 45 ML/MIN; eGFR 37 ML/MIN
[2024-02-26] MEDS: magnesium hydroxide 30ml (MOM) UD suspension PO PRN (20:06)
[2024-02-27] VITALS (10 sets, daily range): BP systolic 110–176; BP diastolic 57–70; PULSE 60–70; RESP 13–20; TEMP 97–98.2; O2SAT 89–96
[2024-02-27 07:33] LABS: BASOPHILS % (AUTO) 0.5 % (0-1); EOSINOPHILS # (AUTO) 0.3 X10'3 (0-0.9); EOSINOPHILS % (AUTO) 4.1 % (0-6); HEMATOCRIT 31.3 % (35.0-45.0); HEMOGLOBIN 10.1 g/dl (12.0-16.0); LYMPHOCYTES # (AUTO) 1.3 X10'3 (1.1-4.8); LYMPHOCYTES % (AUTO) 15.2 % (21-51); MEAN CORPUSCULAR HEMOGLOBIN 25.1 PG (27.0-31.0); MEAN CORPUSCULAR HGB CONC 32.1 g/dL (33.0-36.5); MEAN CORPUSCULAR VOLUME 78.3 FL (78-98); MEAN PLATELET VOLUME 7.3 FL (7.4-10.4); MONOCYTES # (AUTO) 0.7 X10'3 (0-0.9); MONOCYTES % (AUTO) 8.3 % (2-12); NEUTROPHILS # (AUTO) 6.2 X10'3 (1.8-7.7); NEUTROPHILS % (AUTO) 71.9 % (42-75); PLATELET COUNT 559 X10'3 (140-440); RED CELL DISTRIBUTION WIDTH 17.7 % (11.5-14.5); WHITE BLOOD COUNT 8.5 X10'3 (4.5-11.0)
[2024-02-27 07:53] LABS: ALANINE AMINOTRANSFERASE 12 U/L (12-78); ALBUMIN 2.1 G/DL (3.4-5.0); ALBUMIN/GLOBULIN RATIO 0.4 (1.1-1.5); ALKALINE PHOSPHATASE 86 IU/L (46-116); ANION GAP 8 (8-16); ASPARTATE AMINO TRANSFERASE 14 U/L (10-37); BILIRUBIN,TOTAL 0.5 MG/DL (0.1-1.0); BLOOD UREA NITROGEN 28 MG/DL (7-18); BUN/CREATININE RATIO 19.6 (10.0-20.0); CALCIUM 9.1 MG/DL (8.5-10.1); CHLORIDE 101 MMOL/L (99-107); CREATININE 1.43 MG/DL (0.40-0.90); GLUCOSE 134 MG/DL (70-104); POTASSIUM 4.4 MMOL/L (3.5-5.1); SODIUM 136 MMOL/L (135-145); TOTAL CARBON DIOXIDE 27.1 MMOL/L (24-32); TOTAL PROTEIN 6.9 G/DL (6.4-8.2); eCRCL 47 ML/MIN; eGFR 38 ML/MIN
[2024-02-27] MEDS: lisinopril 10 MG tablet PO SCH (09:05)
[2024-02-27] MEDS: atorvastatin 20mg tablet PO SCH (20:39)
[2024-02-28] VITALS (15 sets, daily range): BP systolic 96–165; BP diastolic 45–70; PULSE 60–86; RESP 16–22; TEMP 97.5–98.9; O2SAT 90–95
[2024-02-28 06:35] LABS: BASOPHILS # (AUTO) 0.1 X10'3 (0-0.2); BASOPHILS % (AUTO) 0.6 % (0-1); EOSINOPHILS # (AUTO) 0.2 X10'3 (0-0.9); EOSINOPHILS % (AUTO) 2.1 % (0-6); HEMOGLOBIN 10.4 g/dl (12.0-16.0); LYMPHOCYTES # (AUTO) 1.1 X10'3 (1.1-4.8); LYMPHOCYTES % (AUTO) 10.6 % (21-51); MEAN CORPUSCULAR HEMOGLOBIN 25.8 PG (27.0-31.0); MEAN CORPUSCULAR HGB CONC 33.5 g/dL (33.0-36.5); MEAN CORPUSCULAR VOLUME 77.1 FL (78-98); MEAN PLATELET VOLUME 7.6 FL (7.4-10.4); MONOCYTES # (AUTO) 0.6 X10'3 (0-0.9); NEUTROPHILS # (AUTO) 8.1 X10'3 (1.8-7.7); NEUTROPHILS % (AUTO) 80.7 % (42-75); PLATELET COUNT 558 X10'3 (140-440); RED BLOOD COUNT 4.02 X10'6 (4.20-5.60); RED CELL DISTRIBUTION WIDTH 17.7 % (11.5-14.5); WHITE BLOOD COUNT 10.1 X10'3 (4.5-11.0)
[2024-02-28 07:01] LABS: ALANINE AMINOTRANSFERASE 10 U/L (12-78); ALBUMIN 2.4 G/DL (3.4-5.0); ALBUMIN/GLOBULIN RATIO 0.5 (1.1-1.5); ALKALINE PHOSPHATASE 99 IU/L (46-116); ANION GAP 10 (8-16); ASPARTATE AMINO TRANSFERASE 14 U/L (10-37); BILIRUBIN,TOTAL 0.6 MG/DL (0.1-1.0); BLOOD UREA NITROGEN 26 MG/DL (7-18); BUN/CREATININE RATIO 17.7 (10.0-20.0); CHLORIDE 99 MMOL/L (99-107); CREATININE 1.47 MG/DL (0.40-0.90); GLUCOSE 134 MG/DL (70-104); POTASSIUM 4.2 MMOL/L (3.5-5.1); SODIUM 133 MMOL/L (135-145); TOTAL PROTEIN 6.9 G/DL (6.4-8.2); eCRCL 46 ML/MIN; eGFR 37 ML/MIN
[2024-02-28] MEDS ORDERED: phenylephrine 10mg/ml inj. -priapism dosing ONE (13:29)
[2024-02-28] MEDS ORDERED: atropine 0.1mg/ml 10ml syringe ONE (13:30)
[2024-02-28] MEDS ORDERED: LIDOcaine 1% 30ml preserv. free vial ONE (13:30)
[2024-02-28] MEDS ORDERED: DOPamine 400mg/D5W 250ml 0 ML IV ONE (13:30)
[2024-02-28] MEDS ORDERED: iohexol 350MG/ML 100ml bottle IV ONE (13:30)
[2024-02-28] MEDS ORDERED: heparin 1,000unit/ml 10ml vial 10 ML ONE (13:30)
[2024-02-28] MEDS ORDERED: clopidogrel 300mg tablet ONE (14:44)
[2024-02-28] MEDS ORDERED: fentaNYL/PF 50MCG/1 ML 2ML syringe ONE (14:44)
[2024-02-28] MEDS: mag hydrox/Alum hydrox/simeth 30ml oral suspension PO PRN (15:39)
[2024-02-28] MEDS ORDERED: pseudoephedrine 30mg tablet PO PRN (15:40)
[2024-02-28] MEDS: morphine 2 MG/ML inj. syringe IV ONE (23:06)
[2024-02-29] VITALS (10 sets, daily range): BP systolic 109–143; BP diastolic 31–80; PULSE 60–80; RESP 12–19; TEMP 97–98.1; O2SAT 92–97
[2024-02-29] MEDS ORDERED: ondansetron 4mg rapidly disintigrating tab PO PRN (12:00)
[2024-03-01] VITALS (10 sets, daily range): BP systolic 130–151; BP diastolic 47–72; PULSE 60–86; RESP 16–20; TEMP 97.8–98.6; O2SAT 90–94
[2024-03-02 06:00] VITALS: O2SAT 95
[2024-03-02 08:00] VITALS: RESP 15; O2SAT 94
[2024-03-02 09:00] VITALS: BP_SYST 133; PULSE 60
[2024-03-02 09:50] LABS: ALANINE AMINOTRANSFERASE 14 U/L (12-78); ALBUMIN 2.4 G/DL (3.4-5.0); ALBUMIN/GLOBULIN RATIO 0.5 (1.1-1.5); ALKALINE PHOSPHATASE 89 IU/L (46-116); ANION GAP 8 (8-16); ASPARTATE AMINO TRANSFERASE 11 U/L (10-37); BLOOD UREA NITROGEN 26 MG/DL (7-18); BUN/CREATININE RATIO 15.8 (10.0-20.0); CALCIUM 9.2 MG/DL (8.5-10.1); CHLORIDE 102 MMOL/L (99-107); CREATININE 1.65 MG/DL (0.40-0.90); GLUCOSE 158 MG/DL (70-104); POTASSIUM 4.9 MMOL/L (3.5-5.1); SODIUM 138 MMOL/L (135-145); TOTAL PROTEIN 7.1 G/DL (6.4-8.2); eCRCL 41 ML/MIN; eGFR 32 ML/MIN
[2024-03-02 09:52] LABS: BILIRUBIN,TOTAL 0.4 MG/DL (0.1-1.0)
[2024-03-02] MEDS ORDERED: LOP25T PO (11:47)
[2024-03-02] MEDS ORDERED: CLOP75TA34 PO (11:47)
[2024-03-02] MEDS ORDERED: AMIO100T PO (11:47)
[2024-03-02] MEDS ORDERED: ATOR20TA66 PO (11:47)
[2024-03-02] MEDS ORDERED: FURO-149 PO (11:47)
[2024-03-02] MEDS ORDERED: LISI10TA27 PO (11:47)
[2024-03-02] MEDS ORDERED: DOCU-148 PO (11:47)
[2024-03-02] MEDS ORDERED: HYDR-3972 PO (13:25)
[2024-03-02] MEDS ORDERED: APIX5TAB3 PO (13:25)
[2024-03-02 14:04] VITALS: RESP 18
[2024-03-04] MEDS ORDERED: LISI20TA28 PO (00:36)
[2024-03-04] MEDS ORDERED: DOCU100C40 PO (00:36)
[2024-03-04] MEDS ORDERED: FURO40TA4 PO (00:36)
[2024-03-04] MEDS ORDERED: ATOR40TA72 PO (00:37)
[2024-03-04] MEDS ORDERED: APIX5TAB3 PO (00:38)
[2024-03-04] MEDS ORDERED: CLOP75TA34 PO (00:40)
[2024-03-04] MEDS ORDERED: AMIO100T4 PO (00:40)
[2024-03-04] MEDS ORDERED: METO25TA6 PO (00:40)
[2024-03-04] MEDS ORDERED: HYDR-3973 PO (00:46)
[2024-03-04] MEDS ORDERED: ASPI-1265 PO (00:46)
[2024-03-04] MEDS ORDERED: DULO60CA65 PO (00:46)
[2024-03-04] MEDS ORDERED: HYDR12.55 PO (00:49)
[2024-03-05] MEDS ORDERED: METO50TA16 PO (10:07)
[2024-03-05] MEDS ORDERED: FURO40TA4 PO (21:49)
[2024-03-11] MEDS ORDERED: HYDR-3973 PO (16:47)
== END 2024-03-02 14:14 | disposition home health service (06) | DRG 233 ==
LOC: ER 19:30 → ED HOLD 23:29 → PCU 3S 02-06 02:50 → CICU 2S 02-18 16:46 → PCU 3S 02-23 05:50
PROVIDERS: ADMIT Student in an Organized Health Care Education/Training Program; ATTEND Student in an Organized Health Care Education/Training Program
PROC: B32T1ZZ Computerized Tomography (CT Scan) of Left Pulmonary Artery using Low Osmolar Contrast (ICD-10-PCS; 2024-02-06)
PROC: B3201ZZ Computerized Tomography (CT Scan) of Thoracic Aorta using Low Osmolar Contrast (ICD-10-PCS; 2024-02-06)
PROC: B32S1ZZ Computerized Tomography (CT Scan) of Right Pulmonary Artery using Low Osmolar Contrast (ICD-10-PCS; 2024-02-06)
PROC: 4A00X4Z Measurement of Central Nervous Electrical Activity, External Approach (ICD-10-PCS; 2024-02-07)
PROC: 4A023N7 Measurement of Cardiac Sampling and Pressure, Left Heart, Percutaneous Approach (ICD-10-PCS; principal; 2024-02-12)
PROC: B2111ZZ Fluoroscopy of Multiple Coronary Arteries using Low Osmolar Contrast (ICD-10-PCS; 2024-02-12)
PROC: B2151ZZ Fluoroscopy of Left Heart using Low Osmolar Contrast (ICD-10-PCS; 2024-02-12)
PROC: B3101ZZ Fluoroscopy of Thoracic Aorta using Low Osmolar Contrast (ICD-10-PCS; 2024-02-12)
PROC: B31K1ZZ Fluoroscopy of Bilateral Upper Extremity Arteries using Low Osmolar Contrast (ICD-10-PCS; 2024-02-12)
PROC: B31N1ZZ Fluoroscopy of Other Upper Arteries using Low Osmolar Contrast (ICD-10-PCS; 2024-02-12)
PROC: B41F1ZZ Fluoroscopy of Right Lower Extremity Arteries using Low Osmolar Contrast (ICD-10-PCS; 2024-02-12)
PROC: B3251ZZ Computerized Tomography (CT Scan) of Bilateral Common Carotid Arteries using Low Osmolar Contrast (ICD-10-PCS; 2024-02-12)
PROC: B32G1ZZ Computerized Tomography (CT Scan) of Bilateral Vertebral Arteries using Low Osmolar Contrast (ICD-10-PCS; 2024-02-12)
PROC: B3281ZZ Computerized Tomography (CT Scan) of Bilateral Internal Carotid Arteries using Low Osmolar Contrast (ICD-10-PCS; 2024-02-12)
PROC: 4A02XM4 Measurement of Cardiac Total Activity, External Approach (ICD-10-PCS; 2024-02-12)
PROC: 3E033HZ Introduction of Radioactive Substance into Peripheral Vein, Percutaneous Approach (ICD-10-PCS; 2024-02-12)
PROC: 02100Z9 Bypass Coronary Artery, One Artery from Left Internal Mammary, Open Approach (ICD-10-PCS; 2024-02-18)
PROC: 30233N1 Transfusion of Nonautologous Red Blood Cells into Peripheral Vein, Percutaneous Approach (ICD-10-PCS; 2024-02-18)
PROC: 0JH606Z Insertion of Pacemaker, Dual Chamber into Chest Subcutaneous Tissue and Fascia, Open Approach (ICD-10-PCS; 2024-02-20)
PROC: 02H63JZ Insertion of Pacemaker Lead into Right Atrium, Percutaneous Approach (ICD-10-PCS; 2024-02-20)
PROC: 02HK3JZ Insertion of Pacemaker Lead into Right Ventricle, Percutaneous Approach (ICD-10-PCS; 2024-02-20)
PROC: 5A0955A Assistance with Respiratory Ventilation, Greater than 96 Consecutive Hours, High Flow/Velocity Cannula (ICD-10-PCS; 2024-02-20)
PROC: 037J3DZ Dilation of Left Common Carotid Artery with Intraluminal Device, Percutaneous Approach (ICD-10-PCS; 2024-02-28)
PROC: B3101ZZ Fluoroscopy of Thoracic Aorta using Low Osmolar Contrast (ICD-10-PCS; 2024-02-28)
PROC: B31B1ZZ Fluoroscopy of Left External Carotid Artery using Low Osmolar Contrast (ICD-10-PCS; 2024-02-28)
PROC: B3141ZZ Fluoroscopy of Left Common Carotid Artery using Low Osmolar Contrast (ICD-10-PCS; 2024-02-28)
PROC: B3171ZZ Fluoroscopy of Left Internal Carotid Artery using Low Osmolar Contrast (ICD-10-PCS; 2024-02-28)
DX: I25.119 Atherosclerotic heart disease of native coronary artery with unspecified angina pectoris (principal); J96.01 Acute respiratory failure with hypoxia; N17.0 Acute kidney failure with tubular necrosis; S42.242A 4-part fracture of surgical neck of left humerus, initial encounter for closed fracture; I16.1 Hypertensive emergency; I48.92 Unspecified atrial flutter; I13.0 Hypertensive heart and chronic kidney disease with heart failure and stage 1 through stage 4 chronic kidney disease, or unspecified chronic kidney disease; J98.11 Atelectasis; I50.42 Chronic combined systolic (congestive) and diastolic (congestive) heart failure; E87.20 Acidosis, unspecified; D62 Acute posthemorrhagic anemia; I49.5 Sick sinus syndrome; I42.7 Cardiomyopathy due to drug and external agent; I65.23 Occlusion and stenosis of bilateral carotid arteries; E86.0 Dehydration; I48.91 Unspecified atrial fibrillation; G35 Multiple sclerosis; E78.5 Hyperlipidemia, unspecified; E11.22 Type 2 diabetes mellitus with diabetic chronic kidney disease; I27.20 Pulmonary hypertension, unspecified; R55 Syncope and collapse; I70.8 Atherosclerosis of other arteries; G47.30 Sleep apnea, unspecified; N18.30 Chronic kidney disease, stage 3 unspecified; K59.00 Constipation, unspecified; N14.11 Contrast-induced nephropathy; T50.8X5A Adverse effect of diagnostic agents, initial encounter; Y92.238 Other place in hospital as the place of occurrence of the external cause; W18.39XA Other fall on same level, initial encounter; E04.2 Nontoxic multinodular goiter; R19.7 Diarrhea, unspecified; Y93.89 Activity, other specified; Y92.098 Other place in other non-institutional residence as the place of occurrence of the external cause; I25.2 Old myocardial infarction; Y99.8 Other external cause status; Z95.5 Presence of coronary angioplasty implant and graft; Z87.891 Personal history of nicotine dependence; Z86.711 Personal history of pulmonary embolism; Z82.49 Family history of ischemic heart disease and other diseases of the circulatory system; Z79.899 Other long term (current) drug therapy; Z79.82 Long term (current) use of aspirin; Z79.02 Long term (current) use of antithrombotics/antiplatelets
CPT/HCPCS: 36415; 36430; 36600; 37215; 70450; 70498; 70553; 71045; 71046; 71048; 71275; 73030; 73200; 73503; 78452; 80048; 80053; 80061; 80076; 80305; 80320; 81003; 82140; 82330; 82435; 82570; 82728; 82803; 82947; 82948; 83036; 83540; 83550; 83605; 83735; 83880; 84100; 84132; 84133; 84295; 84300; 84466; 84484; 85008; 85018; 85025; 85347; 85379; 85610; 85730; 86885; 86900; 86901; 86920; 87040; 87081; 93005; 93017; 93306; 93312; 93325; 93458; 93567; 93880; 93970; 94010; 94664; 94760; 95816; 96361; 96374; 96375; 97110; 97116; 97161; 97530; 97535; 99152; 99153; 99285; A4215; A4333; A4615; A4618; A5200; A6223; A6250; A6258; A6449; A6590; A7000; A9500; A9575; C1725; C1751; C1760; C1769; C1781; C1785; C1876; C1884; C1887; C1894; G0378; J0171; J0280; J0282; J0360; J0461; J0690; J1100; J1170; J1200; J1250; J1265; J1644; J1650; J1815; J1940; J2060; J2212; J2250; J2270; J2370; J2405; J2704; J2720; J2785; J3010; J3370; J3475; J3480; J3490; J7030; J7040; J7050; J7120; J7121; P9016; P9045; Q9967